=== PATIENT | male | born 1970 | race Hispanic/Latino ===

== ENCOUNTER 2017-02-21 18:30 | Emergency (ER) | payer BC ==
[2017-02-21 18:58] VITALS: BMI 31.9
[2017-02-21 19:02] VITALS: BP 147/91; PULSE 106; RESP 18; TEMP 99.3; O2SAT 95
[2017-02-21] MEDS ORDERED: TDAP Vaccine 0.5 mL Syr IM ONE (19:08)
--- NOTE | 2017-02-21 19:09 | ED PDOC ---
Arrival/HPI - General Chief Complaint: Abnormal Skin Integrity Time Seen by Provider: 02/21/17 19:04 Historian: Patient - History of Present Illness Narrative History of Present Illness (Text): 02/21/17 19:05 46 y/o male, no pmh, nkda, last tetanus over 10 years ago, nkda, c/o rt. hand laceration x 1 hour. Pt. 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 hand 5 digits or wrist, no numbness or tingling, no other medical or psychological complaints. Past Medical History - Provider Review Nursing Documentation Reviewed: Yes - Infectious Disease Hx of Infectious Diseases: None - Musculoskeletal/Rheumatological Hx Osteomyelitis: Yes (R leg) - Psychiatric Hx Substance Use: No - Surgical History Other/Comment: R leg surgery - osteomyelitis - Anesthesia Hx Anesthesia: Yes Hx Anesthesia Reactions: No Hx Malignant Hyperthermia: No Family/Social History - Physician Review Nursing Documentation Reviewed: Yes Family/Social History: Unknown Family HX Smoking Status: Heavy Smoker > 10 Cigarettes Daily Hx Alcohol Use: Yes Frequency of alcohol use: Socially Hx Substance Use: No Allergies/Home Meds Allergies/Adverse Reactions: Allergies No Known Allergies Allergy (Verified 02/21/17 18:58) Review of Systems - Review of Systems Constitutional: absent: Fatigue, Fevers Eyes: absent: Vision Changes ENT: absent: Hearing Changes Respiratory: absent: SOB, Cough Cardiovascular: absent: Chest Pain Gastrointestinal: absent: Abdominal Pain, Nausea, Vomiting Musculoskeletal: absent: Arthralgias Skin: Laceration. absent: Rash, Pruritis Psychiatric: absent: Anxiety, Depression Physical Exam Vital Signs Reviewed: Yes Vital Signs Temp Pulse Resp BP Pulse Ox 02/21/17 19:01 99.3 F 106 H 18 147/91 H 95 Temperature: Afebrile Blood Pressure: Hypertensive Pulse: Tachycardic Respiratory Rate: Normal Appearance: Positive for: Well-Appearing, Non-Toxic, Comfortable Pain Distress: Mild Mental Status: Positive for: Alert and Oriented X 3 - Systems Exam Head: Present: Atraumatic, Normocephalic Pupils: Present: PERRL Extroacular Muscles: Present: EOMI Conjunctiva: Present: Normal Mouth: Present: Moist Mucous Membranes Neck: Present: Normal Range of Motion Respiratory/Chest: Present: Clear to Auscultation, Good Air Exchange. No: Respiratory Distress, Accessory Muscle Use Cardiovascular: Present: Regular Rate and Rhythm, Normal S1, S2. No: Murmurs Abdomen: Present: Normal Bowel Sounds. No: Tenderness, Distention, Peritoneal Signs Back: Present: Normal Inspection Upper Extremity: Present: Normal Inspection, Other (Rt. hand: thenar region visible approx. 2cm superficial to intermediate depth laceration noted with mild oozing from the wound, FROM without limitation, sensation intact, motor 5/5 , able to touch thumb against remaining 4 digits, +radial pulse, capillary refill< 2 seconds, neurovascular intact. ). No: Cyanosis, Edema Lower Extremity: Present: Normal Inspection. No: Edema Neurological: Present: GCS=15, Speech Normal, Motor Func Grossly Intact, Gait Normal, Memory Normal Skin: Present: Warm, Dry, Normal Color. No: Rashes Psychiatric: Present: Alert, Oriented x 3, Normal Insight, Normal Concentration Medical Decision Making ED Course and Treatment: 02/21/17 19:11 -tdap -xray 02/21/17 19:47 -xray show no fracture/dislocation/foreign bodies. -sensation intact, motor 5/5, wound irrigate with normal saline 1000cc, clean with betadine, 5-0 nylon made sutures, hemostasis obtained with good approximation, gauze dressing, sensation intact, motor 5/5, less than 5cc of blood loss, procedure time approx. 15 minutes. -Discharge home with keflex, motrin, bacitracin oinment, keep the dressing and suture dry and clean for 3 days, sutures need to be removed by day 10-11, return to the ER for any new or worsening signs or symptoms. - RAD Interpretation Radiology Orders: 02/21/17 19:08 HAND RIGHT 3 VIEWS [RAD] Stat normal bone xray Panel Lay Up Worker: Radiologist - Medication Orders Current Medication Orders: Discontinued Medications Cephalexin Monohydrate (Keflex) 500 mg PO STAT STA PRN Reason: Protocol Stop: 02/21/17 19:09 Last Admin: 02/21/17 19:50 Dose: 500 mg Tetanus/Reduced Diphtheria/Acell Pertussis (Boostrix Vaccine Inj) 0.5 ml IM .ONCE ONE Stop: 02/21/17 19:09 Last Admin: 02/21/17 19:50 Dose: 0.5 ml - PA / SALES APPLICATIONS ENGINEER / Resident Statement / has reviewed & agrees with the documentation as recorded. Disposition/Present on Arrival - Present on Arrival Any Indicators Present on Arrival: No History of DVT/PE: No History of Uncontrolled Diabetes: No Urinary Catheter: No History of Decub. Ulcer: No History Surgical Site Infection Following: None - Disposition Have Diagnosis and Disposition been Completed?: Yes Diagnosis: Hand laceration Disposition: HOME/ ROUTINE Disposition Time: 19:47 Patient Plan: Discharge Condition: IMPROVED Additional Instructions: -Discharge home with keflex, motrin, bacitracin oinment, keep the dressing and suture dry and clean for 3 days, sutures need to be removed by day 10-11, return to the ER for any new or worsening signs or symptoms. Prescriptions: Bacitracin Ointment [Bacitracin] 1 appful TOP BID #15 g Cephalexin [cephalexin] 500 mg PO TID #30 cap Ibuprofen [Motrin] 600 mg PO QID PRN #24 tab PRN Reason: Other Referrals: [facility] at [facility] [place] [Outside] - Follow up with primary Lawanda Darling MD [Staff Provider] - Follow up with primary Forms: [facility] (Slovenian), WORK NOTE
--- NOTE | 2017-02-22 07:36 | RAD ---
HISTORY: rt. hand thenar laceration COMPARISON: No prior FINDINGS: BONES: Normal. No fracture. JOINTS: Normal. No osteoarthritis. SOFT TISSUE: Normal. OTHER FINDINGS: None . IMPRESSION: Normal Bone Xray.
== END 2017-02-21 20:01 | disposition home or self-care (01) ==
LOC: ED 18:30
DX: S61.411A Laceration without foreign body of right hand, initial encounter (principal); W25.XXXA Contact with sharp glass, initial encounter; Y92.89 Other specified places as the place of occurrence of the external cause; Z23 Encounter for immunization

== ENCOUNTER 2017-07-26 23:51 | Inpatient (IN) | payer BC ==
[2017-07-26 23:52] VITALS: BMI 31.9
[2017-07-27] MEDS ORDERED: Sodium Chloride 0.9% 1,000 ML IV STA (00:09)
--- NOTE | 2017-07-27 00:14 | ED PDOC ---
Arrival/HPI - General Historian: Patient - General Chief Complaint: Back Pain Time Seen by Provider: 07/27/17 00:08 - History of Present Illness Narrative History of Present Illness (Text): 07/27/17 00:14 47 year old male, no significant pmh, nkda, biba complaining of fever with lower back pain started yesterday with no fall or trauma. 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 (Tre Forde) Past Medical History - Provider Review Nursing Documentation Reviewed: Yes - Infectious Disease Hx of Infectious Diseases: None - Cardiac Hx Cardiac Disorders: No - Pulmonary Hx Respiratory Disorders: No - Neurological Hx Neurological Disorder: No - HEENT Hx HEENT Disorder: No - Renal Hx Renal Disorder: No - Endocrine/Metabolic Hx Hyperthyroidism: Yes - Hematological/Oncological Hx Blood Disorders: No - Integumentary Hx Dermatological Disorder: No - Musculoskeletal/Rheumatological Hx Osteomyelitis: Yes (R leg) - Psychiatric Hx Substance Use: No - Surgical History Other/Comment: R leg surgery - osteomyelitis - Anesthesia Hx Anesthesia: Yes Hx Anesthesia Reactions: No Hx Malignant Hyperthermia: No Family/Social History - Physician Review Nursing Documentation Reviewed: Yes Family/Social History: Unknown Family HX Smoking Status: Heavy Smoker > 10 Cigarettes Daily Hx Alcohol Use: Yes Hx Substance Use: No Allergies/Home Meds Allergies/Adverse Reactions: Allergies No Known Allergies Allergy (Verified 07/27/17 00:05) Home Medications: Home Meds Medication Instructions Recorded Confirmed No Known Home Med 07/27/17 07/27/17 Review of Systems - Review of Systems Constitutional: Fatigue, Fevers Eyes: absent: Vision Changes ENT: absent: Hearing Changes Respiratory: Cough, Sputum. absent: SOB, Wheezing Cardiovascular: absent: Chest Pain Gastrointestinal: absent: Abdominal Pain, Nausea, Vomiting Musculoskeletal: Back Pain, Myalgias. absent: Arthralgias, Neck Pain, Joint Swelling Skin: absent: Rash, Pruritis Neurological: absent: Headache, Dizziness Psychiatric: absent: Anxiety, Depression, Suicidal Ideation Physical Exam Vital Signs Reviewed: Yes Temperature: Febrile Blood Pressure: Hypertensive Pulse: Tachycardic Respiratory Rate: Normal Appearance: Positive for: Ill-Appearing, Uncomfortable Pain Distress: Severe Mental Status: Positive for: Alert and Oriented X 3 - Systems Exam Head: Present: Atraumatic, Normocephalic. No: Tenderness, Contusion, Swelling, Ecchymosis, Abrasion, Laceration, Other Pupils: Present: PERRL Extroacular Muscles: Present: EOMI Conjunctiva: Present: Normal Ears: Present: NORMAL TM, Normal Canal. No: Erythema Mouth: Present: Moist Mucous Membranes Nose (Internal): Present: Normal Inspection, No Active Bleeding. No: Septal Hematoma, Epistaxis Neck: Present: Normal Range of Motion, Trachea Midline. No: Meningeal Signs, MIDLINE TENDERNESS, Paraspinal Tenderness, Lymphadenopathy Respiratory/Chest: Present: Clear to Auscultation, Good Air Exchange. No: Respiratory Distress, Accessory Muscle Use, Wheezes, Decreased Breath Sounds, Rales, Retracting, Tachypneic, Tender to Palpation Cardiovascular: Present: Regular Rate and Rhythm, Normal S1, S2. No: Murmurs Abdomen: No: Tenderness, Distention, Peritoneal Signs, Rebound, Guarding Back: Present: Normal Inspection, Other (LS spine: +ttp on the bilateral paraspinal muscle region and mildly midline, no rash, no streaking, no saddling gait. ). No: CVA Tenderness, Pain with Leg Raise, Decubitus Ulcer Upper Extremity: Present: Normal Inspection. No: Cyanosis, Edema Lower Extremity: Present: Normal Inspection. No: Edema Neurological: Present: GCS=15, CN II-XII Intact, Speech Normal Skin: Present: Warm, Dry, Normal Color. No: Rashes Psychiatric: Present: Alert, Oriented x 3, Normal Insight, Normal Concentration Vital Signs Temp Pulse Resp BP Pulse Ox 07/27/17 01:56 99.6 F 97 H 18 145/85 97 07/27/17 00:06 101.4 F H 113 H 18 151/84 H 96 Medical Decision Making ED Course and Treatment: 07/27/17 00:18 -labs/vbg/blood culture/rapid flu -CT Lumbar spine -Chest xray -IVF/tylenol/toradol -Observe and reassess 07/27/17 01:31 -Labs show no acute findings except wbc 13.7 -Rapid flu is negative -Lactic acid 2.2 -Lactic acid 2.2, wbc 13.7, febrile and tachycardia, code sepsis activated -Blood cultures and IV rocephine and vancomycin ordered for empiric treatment for possible spinal abscess as the source of the fever is unclear at this time. 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 -Case discussed and endorsed to the ER attending Dr. Owens, he will follow up on the lab/radiology result and dispo the patient. (Tre Forde) 07/27/17 03:[address] Larsen, who is aware and agrees with plan. Accepts pt into his service. Pt admitted to telemetry. (Zhao Owens) - Lab Interpretations Lab Results: 07/27/17 00:20 07/27/17 00:20 Lab Results 07/27/17 02:11: Urine Color Yellow, Urine Appearance Clear, Urine pH 6.5, Ur Specific [place] 1.010, Urine Protein Negative, Urine Glucose (UA) Negative, Urine Ketones Negative, Urine Blood Negative, Urine Nitrate Negative, Urine Bilirubin Negative, Urine Urobilinogen 0.2, Ur Leukocyte Esterase Negative 07/27/17 02:11: Urine Opiates Screen Negative, Urine Methadone Screen Negative, Ur Barbiturates Screen Negative, Ur Phencyclidine Scrn Negative, Ur Amphetamines Screen Negative, U Benzodiazepines Scrn Negative, U Oth Cocaine Metabols Negative, U Cannabinoids Screen Negative 07/27/17 00:50: Influenza Typ A,B (EIA) Negative for flu a/b 07/27/17 00:20: WBC 13.7 H, RBC 5.11, Hgb 15.8, Hct 44.4, MCV 86.9, MCH 30.9, MCHC 35.6, RDW 12.9, Plt Count 245, MPV 9.0, Gran % 85.5 H, Lymph % (Auto) 6.9 L , Newton % (Auto) 6.9 H, Eos % (Auto) 0.6 L, Baso % (Auto) 0.1, Gran # 11.68 H, Lymph # (Auto) 0.9 L, Newton # (Auto) 0.9 H, Eos # (Auto) 0.1, Baso # (Auto) 0.02 07/27/17 00:20: Free T4 0.77 L, TSH 3rd Generation 2.83 07/27/17 00:20: Sodium 141, Chloride 106, Potassium 3.9, Carbon Dioxide 24, Anion Gap 16, BUN 13, Creatinine 0.8, Est GFR ( Amer) > 60, Est GFR (Non- Af Amer) > 60, Random Glucose 164 H, Calcium 8.8, Magnesium 1.7, Total Bilirubin 0.6, AST 29, ALT 53, Alkaline Phosphatase 73, Total Protein 6.9, Albumin 3.9, Globulin 3.0, Albumin/Globulin Ratio 1.3 07/27/17 00:20: pO2 150 H, VBG pH 7.45 H, VBG pCO2 36.0 L, VBG HCO3 25.0, VBG Total CO2 26.1, VBG O2 Sat (Calc) 99.6 H, VBG Base Excess 1.3, VBG Potassium 3.9 , Sodium 136.0, Chloride 105.0, Glucose 181 H, Lactate 2.2 H, FiO2 21.0, Venous Blood Potassium 3.9 - RAD Interpretation Radiology Orders: 07/27/17 00:09 CHEST PORTABLE [RAD] Stat 07/27/17 00:10 LUMBAR SPINE W/CONTRAST [CT] Stat 07/27/17 02:03 DUPLEX LOWER EXTRM VEIN BILAT [US] Stat - Medication Orders Current Medication Orders: Discontinued Medications Acetaminophen (Tylenol 325mg Tab) 650 mg PO STAT STA Stop: 07/27/17 00:10 Last Admin: 07/27/17 00:28 Dose: 650 mg Sodium Chloride (Sodium Chloride 0.9%) 1,000 mls @ 999 mls/hr IV .Q1H1M STA Stop: 07/27/17 01:09 Last Admin: 07/27/17 00:28 Dose: 999 mls/hr eMAR Start Stop Document 07/27/17 00:28 CNR (Rec: 07/27/17 00:28 CNR [id number]) Intravenous Solution Start Date 07/27/17 Start Time 00:28 Vancomycin HCl (Vancomycin 1gm) 1 gm in 250 mls @ 167 mls/hr IVPB STAT STA PRN Reason: Protocol Stop: 07/27/17 02:58 Last Admin: 07/27/17 01:56 Dose: 167 mls/hr eMAR Start Stop Document 07/27/17 01:56 CNR (Rec: 07/27/17 01:56 CNR [id number]) Intravenous Solution Start Date 07/27/17 Start Time 01:56 End Date 07/27/17 End time 03:26 Total Infusion Time 90 Ceftriaxone Sodium (Rocephin 2 Gm Ivpb) 2 gm in 100 mls @ 100 mls/hr IVPB STAT STA PRN Reason: Protocol Stop: 07/27/17 02:29 Last Admin: 07/27/17 03:50 Dose: 100 mls/hr eMAR Start Stop Document 07/27/17 03:50 CNR (Rec: 07/27/17 03:50 CNR [id number]) Intravenous Solution Start Date 07/27/17 Start Time 03:50 End Date 07/27/17 End time 04:50 Total Infusion Time 60 Azithromycin (Zithromax 500mg In Ns) 500 mg in 250 mls @ 167 mls/hr IVPB STAT STA PRN Reason: Protocol Stop: 07/27/17 03:55 Ketorolac Tromethamine (Toradol) 30 mg IVP STAT STA Stop: 07/27/17 00:10 Last Admin: 07/27/17 00:28 Dose: 30 mg MAR Pain Assessment Document 07/27/17 00:28 CNR (Rec: 07/27/17 00:28 CNR [id number]) Pain Reassessment Is this a pain reassessment? No IVP Administration Document 07/27/17 00:28 CNR (Rec: 07/27/17 00:28 CNR [id number]) Charges for Administration # of IVP Administrations 1 - PA / SHALLOT CLEANER / Resident Statement /DO has reviewed & agrees with the documentation as recorded. Disposition/Present on Arrival - Present on Arrival Any Indicators Present on Arrival: No History of DVT/PE: No History of Uncontrolled Diabetes: No Urinary Catheter: No History of Decub. Ulcer: No History Surgical Site Infection Following: None - Disposition Have Diagnosis and Disposition been Completed?: Yes Disposition Time: 01:33 Patient Plan: Admission - Disposition Diagnosis: Sepsis Condition: GUARDED Discharge Instructions (ExitCare): Sepsis (ED) Forms: [employer] (German)
[2017-07-27 00:43] LABS: BASO # 0.02 K/mm3 (0.0-2.0); BASO % 0.1 % (0.0-3.0); EOS # 0.1 (0.0-0.7); EOS % 0.6 % (1.5-5.0); GRAN # 11.68 (1.4-6.5); GRAN % 85.5 % (50.0-68.0); HEMOGLOBIN 15.8 g/dL (14.0-18.0); LYMPH # 0.9 (1.2-3.4); LYMPH % 6.9 % (22.0-35.0); MEAN CELL VOLUME 86.9 fl (80.0-105.0); MEAN CORPUSCULAR HEMOGLOBIN 30.9 pg (25.0-35.0); MEAN CORPUSCULAR HGB CONC 35.6 g/dl (31.0-37.0); MONO # 0.9 (0.1-0.6); MONO % 6.9 % (1.0-6.0); RBC 5.11 10^6/uL (3.5-6.1); RED CELL DISTRIBUTION WIDTH 12.9 % (11.5-14.5); WHITE BLOOD COUNT 13.7 10^3/ul (4.5-11.0)
[2017-07-27 00:49] LABS: VENOUS BLOOD GAS BASE EXCESS 1.3 mmol/L (0.0-2.0); VENOUS BLOOD GAS PO2 150 mm/Hg (30-55); VENOUS BLOOD PH 7.45 (7.32-7.43)
[2017-07-27 01:03] LABS: ALB/GLOB RATIO 1.3 (1.1-1.8); ALBUMIN 3.9 g/dL (3.0-4.8); ALT/SGPT 53 U/L (7-56); AST/SGOT 29 U/L (17-59); BLOOD UREA NITROGEN 13 mg/dL (7-21); CALCIUM 8.8 mg/dL (8.4-10.5); GFR AFRICAN-AMERICAN > 60; GFR NON-AFRICAN AMERICAN > 60
[2017-07-27 01:19] LABS: FREE T4 0.77 ng/dL (0.78-2.19)
[2017-07-27] MEDS ORDERED: Iohexol 350 MG/100 ML VIAL ONE (01:19)
[2017-07-27] MEDS ORDERED: Vancomycin 1gm in NS 250ml 1 GM/250 ML BAG IVPB STA (01:29)
[2017-07-27] MEDS ORDERED: cefTRIAXone 2 GM IN NS 2 GM/100 ML BAG IVPB STA (01:30)
--- NOTE | 2017-07-27 02:25 | RAD ---
EXAM: XR Chest, 1 View CLINICAL HISTORY: 47 years old, male; Signs and symptoms; Fever TECHNIQUE: Frontal view of the chest. COMPARISON: No relevant prior studies available. FINDINGS: Limitations: Radiographic technique - mild. Lungs: Mild patchy, predominantly bandlike opacity within left lung base. Pleural space: No pleural effusion. No pneumothorax. Heart: No cardiomegaly. Mediastinum: Unremarkable. Bones/joints: No acute fracture. IMPRESSION: 1. Left basilar atelectasis versus early pneumonia.
[2017-07-27] MEDS ORDERED: Azithromycin 500MG/NS 250ml 500 MG/250 ML BAG IVPB STA (02:26)
--- NOTE | 2017-07-27 02:40 | CT ---
EXAM: CT Lumbar Spine With Intravenous Contrast CLINICAL HISTORY: 47 years old, male; Pain; Low back pain; Additional info: Lower back pain, radiating, fever TECHNIQUE: Axial computed tomography images of the lumbar spine with intravenous contrast. All CT scans at this facility use one or more dose reduction techniques, viz.: automated exposure control; ma/kV adjustment per patient size (including targeted exams where dose is matched to indication; i.e. head); or iterative reconstruction technique. Coronal and sagittal reformatted images were created and reviewed. CONTRAST: 96 mL of OMNI 350 administered intravenously. COMPARISON: No relevant prior studies available. FINDINGS: Limitations: Motion artifact - mild. Vertebrae: No acute fracture. Schmorl's node within mid lumbar spine. No definite erosions or cortical destruction. Dextroscoliosis. Facet osteoarthrosis within mid and lower lumbar spine. Discs/spinal canal/neural foramina: Mild degenerative disc disease throughout lumbar spine. Mild to moderate central canal stenosis within mid to lower lumbar spine. Neuroforaminal narrowing within mid and lower lumbar spine. No definite enhancing mass or fluid collection within spinal canal. Soft tissues: Unremarkable. Vasculature: Several rounded calcifications within pelvis, likely phleboliths. Liver: Mild fatty infiltration. Stomach and bowel: Colonic diverticula. IMPRESSION: 1. No fracture. 2. If symptoms persist, suggest MRI for further evaluation. 3. Incidental/non-acute findings are described above.
[2017-07-27 03:24] LABS: BARBITURATES, UR NEGATIVE (NEGATIVE); BENZODIAZEPINES, UR NEGATIVE (NEGATIVE); OPIATES, UR NEGATIVE (NEGATIVE); PHENCYCLIDINE, UR NEGATIVE (NEGATIVE)
[2017-07-27 03:32] LABS: PH,URINE 6.5 (4.7-8.0); URINE BILIRUBIN NEGATIVE (NEGATIVE); URINE BLOOD NEGATIVE (NEGATIVE); URINE GLUCOSE (UA) NEGATIVE (NEGATIVE); URINE LEUKOCYTE ESTERASE NEGATIVE Leu/uL (NEGATIVE); URINE PROTEIN NEGATIVE mg/dL (<30 mg/dL); URINE UROBILINOGEN 0.2 E.U./dL (<1 E.U./dL)
[2017-07-27 03:35] LABS: URINE APPEARANCE CLEAR (CLEAR); URINE COLOR YELLOW (YELLOW)
[2017-07-27 04:18] LABS: VENOUS BLOOD GAS BASE EXCESS -0.2 mmol/L (0.0-2.0); VENOUS BLOOD GAS PO2 164 mm/Hg (30-55); VENOUS BLOOD PH 7.39 (7.32-7.43)
--- NOTE | 2017-07-27 04:57 | CP.PCM.HP ---
<Laureano Glass - Last Filed: 07/27/17 05:33> History of Present Illness - History of Present Illness History of Present Illness: PGY-1 H&P for Dr. Larsen This is a 47 year old male with PMHx hyperthyroidism who presented with complaint of generalized body pain worst in the lumbar spine. Patient states that this started yesterday after he woke from sleep. Pain has been constant since then. Patient is unable to characterize the pain but remarks that it is worst in the lumbar spine and radiates to the feet bilaterally. Patient does not notice any exacerbating or relieving factors, and he denies trauma. Patient denies subjective fever, chills, chest pain, dyspnea, cough, abdominal pain, dysuria. Patient denies any recent travel or sick contacts. PMHx: Hyperthyroidism (unknown type that was treated many years ago) PSHx: Right leg surgery more than 20 years ago Allergies: NKDA Social: Current smoker 1 pack per day for 31 years. Denies alcohol, drugs. 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 Family Hx: Mother with pancreatic CA at age 64. Grandmother with ESRD on HD. PMD: denies Home meds: denies Present on Admission - Present on Admission Any Indicators Present on Admission: No Review of Systems - Constitutional Constitutional: absent: Chills, Fever - EENT Eyes: absent: Change in Vision Ears: absent: Decreased Hearing Nose/Mouth/Throat: absent: Nasal Congestion - Cardiovascular Cardiovascular: absent: Chest Pain - Respiratory Respiratory: absent: Cough, Dyspnea - Gastrointestinal Gastrointestinal: Constipation (intermittent), Nausea (intermittent). absent: Abdominal Pain, Diarrhea, Vomiting - Genitourinary Genitourinary: absent: Dysuria - Musculoskeletal Musculoskeletal: Back Pain, Radiating Pain into Limb - Integumentary Integumentary: absent: Rash - Neurological Neurological: absent: Dizziness, Weakness - Psychiatric Psychiatric: absent: Anxiety - Endocrine Endocrine: absent: Palpitations Past Patient History - Infectious Disease Hx of Infectious Diseases: None - Past Social History Smoking Status: Heavy Smoker > 10 Cigarettes Daily - CARDIAC Hx Cardiac Disorders: No - PULMONARY Hx Respiratory Disorders: No - NEUROLOGICAL Hx Neurological Disorder: No - HEENT Hx HEENT Problems: No - RENAL Hx Chronic Kidney Disease: No - ENDOCRINE/METABOLIC Hx Hyperthyroidism: Yes - HEMATOLOGICAL/ONCOLOGICAL Hx Blood Disorders: No - INTEGUMENTARY Hx Dermatological Problems: No - MUSCULOSKELETAL/RHEUMATOLOGICAL Hx Osteomyelitis: Yes (R leg) - PSYCHIATRIC Hx Substance Use: No - SURGICAL HISTORY Other/Comment: R leg surgery - osteomyelitis - ANESTHESIA Hx Anesthesia: Yes Hx Anesthesia Reactions: No Hx Malignant Hyperthermia: No Meds Allergies/Adverse Reactions: Allergies Allergy/AdvReac Type Severity Reaction Status Date / Time No Known Allergies Allergy Verified 07/27/17 00:05 Physical Exam - Constitutional Appears: No Acute Distress - Head Exam Head Exam: ATRAUMATIC, NORMOCEPHALIC - Eye Exam Eye Exam: EOMI, PERRL - ENT Exam ENT Exam: Mucous Membranes Moist - Respiratory Exam Respiratory Exam: Clear to Auscultation Bilateral, NORMAL BREATHING PATTERN. absent: Rales, Rhonchi, Wheezes - Cardiovascular Exam Cardiovascular Exam: REGULAR RHYTHM, +S1, +S2 - GI/Abdominal Exam GI & Abdominal Exam: Normal Bowel Sounds, Soft. absent: Guarding, Organomegaly , Tenderness Additional comments: obese body habitus - Extremities Exam Extremities exam: Negative for: pedal edema - Neurological Exam Neurological exam: Alert, CN II-XII Intact, Oriented x3 - Psychiatric Exam Psychiatric exam: Normal Affect, Normal Mood - Skin Skin Exam: Dry, Warm Results - Vital Signs Recent Vital Signs: Last Vital Signs Temp 99.6 F 07/27/17 01:56 Pulse 97 H 07/27/17 01:56 Resp 18 07/27/17 01:56 BP 145/85 07/27/17 01:56 Pulse Ox 97 07/27/17 01:56 - Labs Result Diagrams: 07/27/17 00:20 07/27/17 00:20 Labs: Laboratory Results - last 24 hr 07/27/17 07/27/17 07/27/17 00:20 00:20 00:20 WBC RBC Hgb Hct MCV MCH MCHC RDW Plt Count MPV Gran % Lymph % (Auto) [place] % (Auto) Eos % (Auto) Baso % (Auto) Gran # Lymph # (Auto) [place] # (Auto) Eos # (Auto) Baso # (Auto) pO2 150 H VBG pH 7.45 H VBG pCO2 36.0 L VBG HCO3 25.0 VBG Total CO2 26.1 VBG O2 Sat (Calc) 99.6 H VBG Base Excess 1.3 VBG Potassium 3.9 Sodium 136.0 141 Chloride 105.0 106 Glucose 181 H Lactate 2.2 H FiO2 21.0 Potassium 3.9 Carbon Dioxide 24 Anion Gap 16 BUN 13 Creatinine 0.8 Est GFR ( Amer) > 60 Est GFR (Non-Af Amer) > 60 Random Glucose 164 H Calcium 8.8 Magnesium 1.7 Total Bilirubin 0.6 AST 29 ALT 53 Alkaline Phosphatase 73 Total Protein 6.9 Albumin 3.9 Globulin 3.0 Albumin/Globulin Ratio 1.3 Free T4 0.77 L TSH 3rd Generation 2.83 Venous Blood Potassium 3.9 Urine Color Urine Appearance Urine pH Ur Specific [place] Urine Protein Urine Glucose (UA) Urine Ketones Urine Blood Urine Nitrate Urine Bilirubin Urine Urobilinogen Ur Leukocyte Esterase Urine Opiates Screen Urine Methadone Screen Ur Barbiturates Screen Ur Phencyclidine Scrn Ur Amphetamines Screen U Benzodiazepines Scrn U Oth Cocaine Metabols U Cannabinoids Screen Influenza Typ A,B (EIA) 07/27/17 07/27/17 07/27/17 00:20 00:50 02:11 WBC 13.7 H RBC 5.11 Hgb 15.8 Hct 44.4 MCV 86.9 MCH 30.9 MCHC 35.6 RDW 12.9 Plt Count 245 MPV 9.0 Gran % 85.5 H Lymph % (Auto) 6.9 L [place] % (Auto) 6.9 H Eos % (Auto) 0.6 L Baso % (Auto) 0.1 Gran # 11.68 H Lymph # (Auto) 0.9 L [place] # (Auto) 0.9 H Eos # (Auto) 0.1 Baso # (Auto) 0.02 pO2 VBG pH VBG pCO2 VBG HCO3 VBG Total CO2 VBG O2 Sat (Calc) VBG Base Excess VBG Potassium Sodium Chloride Glucose Lactate FiO2 Potassium Carbon Dioxide Anion Gap BUN Creatinine Est GFR ( Amer) Est GFR (Non-Af Amer) Random Glucose Calcium Magnesium Total Bilirubin AST ALT Alkaline Phosphatase Total Protein Albumin Globulin Albumin/Globulin Ratio Free T4 TSH 3rd Generation Venous Blood Potassium Urine Color Urine Appearance Urine pH Ur Specific [place] Urine Protein Urine Glucose (UA) Urine Ketones Urine Blood Urine Nitrate Urine Bilirubin Urine Urobilinogen Ur Leukocyte Esterase Urine Opiates Screen Negative Urine Methadone Screen Negative Ur Barbiturates Screen Negative Ur Phencyclidine Scrn Negative Ur Amphetamines Screen Negative U Benzodiazepines Scrn Negative U Oth Cocaine Metabols Negative U Cannabinoids Screen Negative Influenza Typ A,B (EIA) Negative for flu a/b 07/27/17 07/27/17 02:11 03:55 WBC RBC Hgb Hct MCV MCH MCHC RDW Plt Count MPV Gran % Lymph % (Auto) [place] % (Auto) Eos % (Auto) Baso % (Auto) Gran # Lymph # (Auto) [place] # (Auto) Eos # (Auto) Baso # (Auto) pO2 164 H VBG pH 7.39 VBG pCO2 41.0 VBG HCO3 24.8 VBG Total CO2 26.1 VBG O2 Sat (Calc) 99.3 H VBG Base Excess -0.2 L VBG Potassium 4.0 Sodium 136.0 Chloride 106.0 Glucose 109 Lactate 1.3 FiO2 21.0 Potassium Carbon Dioxide Anion Gap BUN Creatinine Est GFR ( Amer) Est GFR (Non-Af Amer) Random Glucose Calcium Magnesium Total Bilirubin AST ALT Alkaline Phosphatase Total Protein Albumin Globulin Albumin/Globulin Ratio Free T4 TSH 3rd Generation Venous Blood Potassium 4.0 Urine Color Yellow Urine Appearance Clear Urine pH 6.5 Ur Specific [place] 1.010 Urine Protein Negative Urine Glucose (UA) Negative Urine Ketones Negative Urine Blood Negative Urine Nitrate Negative Urine Bilirubin Negative Urine Urobilinogen 0.2 Ur Leukocyte Esterase Negative Urine Opiates Screen Urine Methadone Screen Ur Barbiturates Screen Ur Phencyclidine Scrn Ur Amphetamines Screen U Benzodiazepines Scrn U Oth Cocaine Metabols U Cannabinoids Screen Influenza Typ A,B (EIA) Assessment & Plan - Assessment and Plan (Free Text) Assessment: This is a 47 year old male with PMHx hyperthyroidism who presented with complaint of generalized body pain worst in the lumbar spine. Patient found to be septic in the ED with suspected source of pneumonia. Plan: 1. Sepsis -ID consulted by the ED -Given Vancomycin, Azithromycin, Rocephin -Continued Azithromycin and Rocephin -NS @100 cc/hr -f/u procalcitonin -CT chest/abd/pelvis without contrast ordered -f/u ABG 2. Back Pain -CT lumbar showed lumbar stenosis and foraminal narrowing -PT/OT 3. Tobacco Use Disorder -Nicotine patch -Counselled on smoking cessation 4. History of Hyperthyroidism -TSH within normal limits -free T4 slightly decreased -f/u thyroid workup Discussed with Dr. Chava Glass PGY-1 <Shiv Larsen U - Last Filed: 07/28/17 15:39> Results - Vital Signs Recent Vital Signs: Last Vital Signs Temp 98.3 F 07/28/17 12:00 Pulse 104 H 07/28/17 12:00 Resp 18 07/28/17 12:00 BP 133/83 07/28/17 12:00 Pulse Ox 96 07/28/17 09:00 - Labs Result Diagrams: 07/28/17 06:30 07/28/17 06:30 Labs: Laboratory Results - last 24 hr 07/27/17 07/27/17 07/27/17 07:00 08:20 17:45 WBC RBC Hgb Hct MCV MCH MCHC RDW Plt Count MPV Gran % Lymph % (Auto) [place] % (Auto) Eos % (Auto) Baso % (Auto) Gran # Lymph # (Auto) [place] # (Auto) Eos # (Auto) Baso # (Auto) Sodium Potassium Chloride Carbon Dioxide Anion Gap BUN Creatinine Est GFR ( Amer) Est GFR (Non-Af Amer) Random Glucose Calcium Phosphorus Magnesium Total Bilirubin Direct Bilirubin AST ALT Alkaline Phosphatase Total Creatine Kinase Total Protein Albumin Globulin Albumin/Globulin Ratio Hepatitis A IgM Ab Negative Hep Bs Antigen Negative Hep B Core IgM Ab Negative Hepatitis C Antibody Negative HIV 1&2 Ag/Ab, 4th Gen Nonreactive Ur L.pneumophila Ag Negative 07/28/17 07/28/17 07/28/17 06:30 06:30 06:30 WBC 7.5 D RBC 4.64 Hgb 13.9 L Hct 41.1 L MCV 88.6 MCH 30.0 MCHC 33.8 RDW 13.5 Plt Count 217 MPV 9.1 Gran % 67.8 Lymph % (Auto) 17.0 L [place] % (Auto) 12.1 H Eos % (Auto) 2.7 Baso % (Auto) 0.4 Gran # 5.06 Lymph # (Auto) 1.3 [place] # (Auto) 0.9 H Eos # (Auto) 0.2 Baso # (Auto) 0.03 Sodium 142 Potassium 4.2 Chloride 108 H Carbon Dioxide 26 Anion Gap 12 BUN 8 Creatinine 1.0 Est GFR ( Amer) > 60 Est GFR (Non-Af Amer) > 60 Random Glucose 97 Calcium 8.1 L Phosphorus 3.0 Magnesium 2.2 Total Bilirubin 0.3 Direct Bilirubin 0.1 AST 24 ALT 50 Alkaline Phosphatase 59 Total Creatine Kinase 43 Total Protein 5.8 Albumin 3.2 Globulin 2.6 Albumin/Globulin Ratio 1.3 Hepatitis A IgM Ab Hep Bs Antigen Hep B Core IgM Ab Hepatitis C Antibody HIV 1&2 Ag/Ab, 4th Gen Ur L.pneumophila Ag Attending/Attestation - Attestation I have personally seen and examined this patient.: Yes I have fully participated in the care of the patient.: Yes I have reviewed all pertinent clinical information: Yes Notes (Text): Please see/read my dictated notes.
[2017-07-27] MEDS ORDERED: Sodium Chloride 0.9% 1,000 ML IV SCH (05:00)
[2017-07-27] MEDS ORDERED: Lactated Ringer's 1,000 ML IV SCH (05:15)
[2017-07-27 05:42] LABS: ARTERIAL BLOOD GAS HCO3 22.8 mmol/L (21-28); ARTERIAL BLOOD GAS PCO2 36 mm/Hg (35-45); ARTERIAL BLOOD GAS PH 7.41 (7.35-7.45); ARTERIAL BLOOD GAS TCO2 23.9 mmol.L (22-28)
--- NOTE | 2017-07-27 06:24 | PCM.SEPTIC ---
<Laureano Glass - Last Filed: 07/27/17 06:23> Sepsis Progress Note - Reassessment Type Date of Evaluation: 07/27/17 Time of Evaluation: 05:30 Reassessment Type: Non-invasive reassessment - Non Invasive Reassessment Were the most recent vital sign reviewed: Yes Vital Sign (Latest): Temp Pulse Resp BP Pulse Ox 98.6 F 94 H 18 145/93 H 99 07/27/17 05:53 07/27/17 05:53 07/27/17 05:53 07/27/17 05:53 07/27/17 05:53 Cardiovascular: Yes: Regular Rate, Rhythm Respiratory: Yes: Normal Breath Sounds. No: Accessory Muscle Use, Rales, Wheezing, Respiratory Distress Capillary Refill: Normal (Less than 2 sec) Skin: Normal Color <Shiv Larsen - Last Filed: 07/28/17 15:39> Sepsis Progress Note - Non Invasive Reassessment Vital Sign (Latest): Temp Pulse Resp BP Pulse Ox 98.3 F 104 H 18 133/83 96 07/28/17 12:00 07/28/17 12:00 07/28/17 12:00 07/28/17 12:00 07/28/17 09:00 Attending/Attestation - Attestation I have personally seen and examined this patient.: Yes I have fully participated in the care of the patient.: Yes I have reviewed all pertinent clinical information, including history, physical exam and plan: Yes
--- NOTE | 2017-07-27 06:38 | CT ---
EXAM: CT Chest Without Intravenous Contrast CLINICAL HISTORY: 47 years old, male; Pain; Abdominal pain; Chest pain; Additional info: Sepsis TECHNIQUE: Axial computed tomography images of the chest without intravenous contrast. All CT scans at this facility use one or more dose reduction techniques, viz.: automated exposure control; ma/kV adjustment per patient size (including targeted exams where dose is matched to indication; i.e. head); or iterative reconstruction technique. Coronal and sagittal reformatted images were created and reviewed. COMPARISON: No relevant prior studies available. FINDINGS: Limitations: Lack of intravenous contrast. Lungs: Mild atelectasis/scarring. No consolidation. Pleural space: No pneumothorax. No significant effusion. Heart: No cardiomegaly. No significant pericardial effusion. Mediastinum: Small polyp or mucus within distal trachea. Bones/joints: No acute fracture. Soft tissues: Unremarkable. Vasculature: Aberrant RIGHT subclavian artery. No aneurysm. Lymph nodes: No pathologically enlarged lymph nodes. IMPRESSION: 1. No definite CT evidence of pneumonia. 2. Small polyp or mucus within trachea. Clinical correlation is needed. 3. Incidental/non-acute findings are described above. EXAM: CT Abdomen and Pelvis Without Intravenous Contrast CLINICAL HISTORY: 47 years old, male; Pain; Abdominal pain; Chest pain; Additional info: Sepsis TECHNIQUE: Axial computed tomography images of the abdomen and pelvis without intravenous contrast. All CT scans at this facility use one or more dose reduction techniques, viz.: automated exposure control; ma/kV adjustment per patient size (including targeted exams where dose is matched to indication; i.e. head); or iterative reconstruction technique. Coronal and sagittal reformatted images were created and reviewed. COMPARISON: No relevant prior studies available. FINDINGS: Limitations: Lack of intravenous contrast. ABDOMEN: Liver: Unremarkable. Gallbladder and bile ducts: No calcified stones. No ductal dilation. Pancreas: Unremarkable. No ductal dilation. Spleen: No splenomegaly. Adrenals: No mass. Kidneys and ureters: No renal calculi. Contrast within renal collecting system. No hydronephrosis. Stomach and bowel: Several diverticula within sigmoid colon. No associated inflammatory stranding. Moderate mural thickening of cecum and ascending colon. Mild stranding within adjacent fat. No obstruction. PELVIS: Appendix: Normal caliber. No inflammation. Bladder: Apparent mild bladder wall thickening. Contrast within lumen. Incomplete distention, limiting evaluation. Reproductive: Unremarkable as visualized. ABDOMEN and PELVIS: Intraperitoneal space: No significant fluid collection. No free air. Bones/joints: Focal widening medullary space of left iliac wing, chronic. Probable bone islands. Degenerative changes and scoliosis of spine. No acute fracture. Soft tissues: Unremarkable. Vasculature: Unremarkable. No aneurysm. Lymph nodes: Several subcentimeter short axis lymph nodes within paraaortic region. IMPRESSION: 1. Colitis, nonspecific. Consider inflammatory, infectious, or ischemic etiologies. 2. Mild cystitis vs underdistention. Correlate with urinalysis. 3. Incidental/non-acute findings are described above.
[2017-07-27] MEDS: Pantoprazole 40 mg EC Tab PO SCH (06:57)
[2017-07-27 07:12] LABS: BASO # 0.02 K/mm3 (0.0-2.0); BASO % 0.2 % (0.0-3.0); EOS # 0.1 (0.0-0.7); EOS % 0.5 % (1.5-5.0); GRAN # 10.44 (1.4-6.5); GRAN % 83.3 % (50.0-68.0); HEMOGLOBIN 15.2 g/dL (14.0-18.0); LYMPH % 7.8 % (22.0-35.0); MEAN CELL VOLUME 87.9 fl (80.0-105.0); MEAN CORPUSCULAR HEMOGLOBIN 30.2 pg (25.0-35.0); MEAN CORPUSCULAR HGB CONC 34.3 g/dl (31.0-37.0); MONO % 8.2 % (1.0-6.0); RBC 5.04 10^6/uL (3.5-6.1); RED CELL DISTRIBUTION WIDTH 13.1 % (11.5-14.5); WHITE BLOOD COUNT 12.5 10^3/ul (4.5-11.0)
[2017-07-27 07:36] LABS: ALB/GLOB RATIO 1.4 (1.1-1.8); ALBUMIN 3.8 g/dL (3.0-4.8); ALT/SGPT 51 U/L (7-56); AST/SGOT 26 U/L (17-59); BLOOD UREA NITROGEN 12 mg/dL (7-21); CALCIUM 8.3 mg/dL (8.4-10.5); GFR AFRICAN-AMERICAN > 60; GFR NON-AFRICAN AMERICAN > 60; HDL CHOLESTEROL 43 mg/dL (29-60); URIC ACID 5.3 mg/dL (3.5-8.5)
[2017-07-27 07:41] LABS: TROPONIN I < 0.01 ng/mL
[2017-07-27 07:42] LABS: LDL CHOLESTEROL 109 mg/dL (0-129)
[2017-07-27] MEDS: Piperacillin/Tazobact 3.375 gm 100 ML IVPB SCH ×3 (07:51→17:37)
[2017-07-27 08:15] LABS: FREE T4 0.81 ng/dL (0.78-2.19)
[2017-07-27] MEDS ORDERED: metroNIDAZOLE IV 500 mg/100 ml 500 MG/100 ML BAG IVPB SCH (08:15)
[2017-07-27 08:16] LABS: FREE T4 0.87 ng/dL (0.78-2.19)
[2017-07-27] MEDS: Levalbuterol 0.63 MG/3 ML Inhal Soln UD IH SCH ×3 (08:26→20:45)
[2017-07-27] MEDS: Enoxaparin 40 mg Syringe SC SCH (09:09)
[2017-07-27] MEDS ORDERED: Magnesium Citrate Oral SOL (300 ml) PO ONE (10:04)
[2017-07-27] MEDS ORDERED: POLYETHYLENE GLYCOL 3350 17 GM/Dose PACKET PO SCH (10:15)
--- NOTE | 2017-07-27 11:29 | CARD ---
APPROVED REPORT EKG Measurement Heart [id number] <Conclusion> Normal sinus rhythm Normal ECG
[2017-07-27] MEDS: Sodium Chloride 0.9% 1,000 ML IV SCH ×2 (13:16→20:00)
--- NOTE | 2017-07-27 13:47 | CP.PCM.CON ---
History of Present Illness - History of Present Illness History of Present Illness: 47 year old male with PMH of hyperthyroidism, obesity with BMI 33, history of right leg surgery, significant smoking history came in to [facility] [place] complaining of back pain, especially the lower back, on the right side. He states that the patient occasionally radiates to the legs and to the feet. He denies leg weakness or difficulty walking. He states that he does not have urinary incontinence, but occasionally has bowel incontinence. He states that the pain has been building up for a few months now. He denies fever or chills, denies IV drug use, no headache or dizziness, no chest pain, no SOB, no cough or rhinorrhea, no abdominal pain, no chest pain, no dysuria. He is noted to have leukocytosis in the ED and Infectious diseases consult is requested to further evaluate and manage. Review of Systems - Review of Systems All systems: reviewed and no additional remarkable complaints except (as per HPI ) Past Patient History - Infectious Disease Hx of Infectious Diseases: None - Past Social History Smoking Status: Current Some Days Smoker - CARDIAC Hx Cardiac Disorders: No (denies) - PULMONARY Hx Respiratory Disorders: No (denies) - NEUROLOGICAL Hx Neurological Disorder: No (denies) - HEENT Hx HEENT Problems: Yes (lasic sx) - RENAL Hx Chronic Kidney Disease: No (denies) - ENDOCRINE/METABOLIC Hx Endocrine Disorders: Yes Hx Hyperthyroidism: Yes - HEMATOLOGICAL/ONCOLOGICAL Hx Blood Disorders: No - INTEGUMENTARY Hx Dermatological Problems: No (denies) - MUSCULOSKELETAL/RHEUMATOLOGICAL Hx Musculoskeletal Disorders: Yes Hx Back Pain: Yes Hx Falls: No Hx Osteomyelitis: Yes (right leg with sx) - GASTROINTESTINAL Hx Gastrointestinal Disorders: Yes (constipation) - GENITOURINARY/GYNECOLOGICAL Hx Genitourinary Disorders: No (denies) - PSYCHIATRIC Hx Psychophysiologic Disorder: No (denies) Hx Substance Use: No - SURGICAL HISTORY Hx Surgeries: Yes (right leg) - ANESTHESIA Hx Anesthesia: Yes Hx Anesthesia Reactions: No Hx Malignant Hyperthermia: No Meds Allergies/Adverse Reactions: Allergies Allergy/AdvReac Type Severity Reaction Status Date / Time No Known Allergies Allergy Verified 07/27/17 00:05 - Medications Medications: Current Medications Acetaminophen (Tylenol 325mg Tab) 650 mg PO Q6 PRN PRN Reason: TEMP>=99.5F Last Admin: 07/27/17 09:08 Dose: 650 mg Acetaminophen (Tylenol 650 Mg Supp) 650 mg RC Q6H PRN PRN Reason: TEMP>=99.5F Atorvastatin Calcium (Lipitor) 40 mg PO DIN [facility] Benzonatate (Tessalon Perles) 200 mg PO TID [facility] Last Admin: 07/27/17 13:13 Dose: 200 mg Enoxaparin Sodium (Lovenox) 40 mg SC DAILY [facility] PRN Reason: Protocol Last Admin: 07/27/17 09:09 Dose: Not Given Piperacillin Sod/Tazobactam Sod (Zosyn 3.375 In Ns 100ml) 100 mls @ 200 mls/hr IVPB Q6 [facility] PRN Reason: Protocol Stop: 08/03/17 07:16 Last Admin: 07/27/17 13:13 Dose: 200 mls/hr Sodium Chloride (Sodium Chloride 0.9%) 1,000 mls @ 150 mls/hr IV .Q6H40M [facility] Last Admin: 07/27/17 13:16 Dose: 150 mls/hr Levalbuterol HCl (Xopenex) 0.63 mg IH [id number] [facility] Last Admin: 07/27/17 08:26 Dose: 0.63 mg Losartan Potassium (Cozaar) 25 mg PO DAILY [facility] Last Admin: 07/27/17 09:08 Dose: 25 mg Nicotine (Nicoderm Cq) 1 patch TD DAILY [facility] Last Admin: 07/27/17 09:09 Dose: Not Given Ondansetron HCl (Zofran Inj) 4 mg IVP Q4H PRN PRN Reason: Nausea/Vomiting Last Admin: 07/27/17 07:51 Dose: 4 mg Pantoprazole Sodium (Protonix Ec Tab) 40 mg PO 0600 [facility] Last Admin: 07/27/17 06:57 Dose: 40 mg Physical Exam - Constitutional Appears: Non-toxic, Chronically Ill - Head Exam Head Exam: NORMAL INSPECTION - ENT Exam ENT Exam: Mucous Membranes Moist - Neck Exam Neck exam: Negative for: Lymphadenopathy, Meningismus - Respiratory Exam Respiratory Exam: Decreased Breath Sounds. absent: Rales - Cardiovascular Exam Cardiovascular Exam: +S1, +S2 - GI/Abdominal Exam GI & Abdominal Exam: Soft. absent: Tenderness - Back Exam Back exam: absent: CVA tenderness (L), CVA tenderness (R), paraspinal tenderness , tenderness, vertebral tenderness - Neurological Exam Neurological exam: Alert, Oriented x3 Additional comments: 5/5 motor strength on all extremities Results - Vital Signs Recent Vital Signs: Last Vital Signs Temp 98.7 F 07/27/17 12:00 Pulse 86 07/27/17 12:00 Resp 21 07/27/17 12:00 BP 104/70 07/27/17 12:00 Pulse Ox 98 07/27/17 06:48 - Labs Result Diagrams: 07/27/17 06:30 07/27/17 06:30 Labs: Laboratory Results - last 24 hr 07/27/17 07/27/17 07/27/17 05:30 06:30 06:30 WBC 12.5 H RBC 5.04 Hgb 15.2 Hct 44.3 MCV 87.9 MCH 30.2 MCHC 34.3 RDW 13.1 Plt Count 224 MPV 9.0 Gran % 83.3 H Lymph % (Auto) 7.8 L [place] % (Auto) 8.2 H Eos % (Auto) 0.5 L Baso % (Auto) 0.2 Gran # 10.44 H Lymph # (Auto) 1.0 L [place] # (Auto) 1.0 H Eos # (Auto) 0.1 Baso # (Auto) 0.02 ESR 2 pCO2 36 pO2 94.0 HCO3 22.8 ABG pH 7.41 ABG Total CO2 23.9 ABG O2 Saturation 99.0 H ABG Base Excess -1.4 ABG Potassium 3.9 Sodium 137.0 143 Chloride 109.0 H 104 Glucose 100 Lactate 1.2 FiO2 28.0 Potassium 4.4 Carbon Dioxide 29 Anion Gap 14 BUN 12 Creatinine 0.9 Est GFR ( Amer) > 60 Est GFR (Non-Af Amer) > 60 Random Glucose 106 Hemoglobin A1c Lactic Acid Uric Acid 5.3 Calcium 8.3 L Phosphorus 3.5 Magnesium 1.7 Total Bilirubin 0.5 AST 26 ALT 51 Alkaline Phosphatase 67 Total Creatine Kinase 42 Troponin I < 0.01 C-React Prot High Sens Total Protein 6.5 Albumin 3.8 Globulin 2.7 Albumin/Globulin Ratio 1.4 Triglycerides 93 Cholesterol 172 LDL Cholesterol Direct 109 HDL Cholesterol 43 Free T4 Thyroxine (T4) TSH 3rd Generation Arterial Blood Potassium 3.9 07/27/17 07/27/17 07/27/17 06:30 06:30 06:30 WBC RBC Hgb Hct MCV MCH MCHC RDW Plt Count MPV Gran % Lymph % (Auto) [place] % (Auto) Eos % (Auto) Baso % (Auto) Gran # Lymph # (Auto) [place] # (Auto) Eos # (Auto) Baso # (Auto) ESR pCO2 pO2 HCO3 ABG pH ABG Total CO2 ABG O2 Saturation ABG Base Excess ABG Potassium Sodium Chloride Glucose Lactate FiO2 Potassium Carbon Dioxide Anion Gap BUN Creatinine Est GFR ( Amer) Est GFR (Non-Af Amer) Random Glucose Hemoglobin A1c 5.5 Lactic Acid 1.5 Uric Acid Calcium Phosphorus Magnesium Total Bilirubin AST ALT Alkaline Phosphatase Total Creatine Kinase Troponin I C-React Prot High Sens > 15.00 H Total Protein Albumin Globulin Albumin/Globulin Ratio Triglycerides Cholesterol LDL Cholesterol Direct HDL Cholesterol Free T4 0.81 Thyroxine (T4) 5.0 L TSH 3rd Generation 2.73 Arterial Blood Potassium 07/27/17 07/27/17 06:30 06:30 WBC RBC Hgb Hct MCV MCH MCHC RDW Plt Count MPV Gran % Lymph % (Auto) [place] % (Auto) Eos % (Auto) Baso % (Auto) Gran # Lymph # (Auto) [place] # (Auto) Eos # (Auto) Baso # (Auto) ESR pCO2 pO2 HCO3 ABG pH ABG Total CO2 ABG O2 Saturation ABG Base Excess ABG Potassium Sodium Chloride Glucose Lactate FiO2 Potassium Carbon Dioxide Anion Gap BUN Creatinine Est GFR ( Amer) Est GFR (Non-Af Amer) Random Glucose Hemoglobin A1c Lactic Acid Uric Acid Calcium Phosphorus Magnesium Total Bilirubin AST ALT Alkaline Phosphatase Total Creatine Kinase Troponin I C-React Prot High Sens Total Protein Albumin Globulin Albumin/Globulin Ratio Triglycerides Cholesterol LDL Cholesterol Direct HDL Cholesterol Free T4 0.87 0.83 Thyroxine (T4) TSH 3rd Generation 2.65 Arterial Blood Potassium Assessment & Plan - Assessment and Plan (Free Text) Plan: Assessment systemic inflammatory response syndrome in this patient acute worsening of lower back pain, consider acute stress reaction, R/O disc herniation, R/O spinal lesion hyperthyroidism obesity with BMI 33 history of right leg surgery significant smoking history Plan Started the patient on Vancomycin and Zosyn pending blood, urine cx; reviewed CT lumbar spine - will get MRI of the lumbar spine follow up HIV test will monitor clinically
[2017-07-27] MEDS: Vancomycin 1gm in NS 250ml 1 GM/250 ML BAG IVPB SCH (14:27)
[2017-07-27 18:33] LABS: HEPATITIS B SURFACE AG Negative (NEGATIVE)
[2017-07-27 18:39] LABS: HEPATITIS A IGM NEGATIVE (NEGATIVE); HEPATITIS B CORE AB NEGATIVE (NEGATIVE)
[2017-07-27 18:51] LABS: HEPATITIS C ANTIBODY NEGATIVE (NEGATIVE)
[2017-07-27] MEDS ORDERED: Gadodiamide 287 MG/ML VIAL (15ML) IV ONE (20:31)
--- NOTE | 2017-07-27 21:44 | US ---
HISTORY: Leg pain and swelling. Evaluate for DVT PHYSICIAN(S): Raúl Madrid MD. TECHNIQUE: Duplex sonography and color-flow Doppler with graded compression were used to evaluate the deep venous systems of both lower extremities. FINDINGS: The visualized deep venous systems of both lower extremities are sonographically normal and compressible. Normal wave forms and augmentation are seen. There is no sonographic evidence for deep venous thrombosis in the visualized segments of both lower extremities. IMPRESSION: No sonographic evidence for deep venous thrombosis in the visualized segments of both lower extremities.
[2017-07-28] MEDS: Piperacillin/Tazobact 3.375 gm 100 ML IVPB SCH ×4 (01:07→17:55)
[2017-07-28] MEDS: Levalbuterol 0.63 MG/3 ML Inhal Soln UD IH SCH ×4 (02:10→19:50)
[2017-07-28] MEDS: Vancomycin 1gm in NS 250ml 1 GM/250 ML BAG IVPB SCH ×2 (02:10→13:37)
--- NOTE | 2017-07-28 04:19 | HP ---
DATE OF EXAM: 07/27/2017 LOCATION: Patient is seen in the emergency room, room 274, bed 2. HISTORY OF PRESENT ILLNESS: The patient is a 47-year-old male who presented to the [facility] emergency room with complaining of fever, chills, back pain and generalized body aches and bilateral lower extremity pain. The patient was brought into the [facility] emergency room with fever, chills, back pain, diffuse myalgia. The symptoms have been worsening for the last 24-48 hours with generalized pain, radiating to back and the lower extremity. REVIEW OF SYSTEMS: A 13 -system review was done, pertinent positive and negative dictated above. CODE STATUS: Full code. LIVING WILL ADVANCE DIRECTIVE: None. ALLERGIES: None. HEIGHT: 6 feet 1 inch. WEIGHT: 252. BMI: 33.4. HOME MEDICATIONS: None. 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 FAMILY HISTORY: Not available. SOCIAL HISTORY: Social alcohol and positive smoking. FAMILY HISTORY: Mother of pancreatic cancer at 64. Grandmother with dialysis. PSYCHIATRIC HISTORY: Negative. PHYSICAL EXAMINATION: VITAL SIGNS: T-max 101.4-99.4. Telemetry shows sinus rhythm, sinus tachycardia, heart rates 110, 97, 94, 99, 102, 86 90, blood pressure 151/84, 145/85, 145/93, 145/ , 143/86, 104/70, respiratory rate is 18-21, oxygen saturation 97-99%. HEENT: Head examination; normocephalic, atraumatic. HEENT examination shows pink conjunctivae, anicteric sclerae. No oropharyngeal lesion. No neck rigidity. CHEST: Kyphosis. LUNGS: Examination shows occasional rhonchi in the upper lung reid bilaterally. CARDIOVASCULAR: Shows S1, S2, regular rhythm. No audible murmur, gallop or rub. ABDOMEN: Soft. Positive bowel sound. Questionable bilateral costovertebral angle tenderness, questionable right and left lower quadrant tenderness, questionable right periumbilical tenderness and mild epigastric tenderness. No rebound tenderness. GENITALIA: Male. RECTAL: Examination is deferred. EXTREMITIES: Shows no pitting edema, no calf numbness, no Homans' sign. MUSCULOSKELETAL: Examination shows a body mass index of 33.4. SKIN: Examination shows multiple tattoos. NEUROLOGIC: The patient is alert, awake, oriented x3. Cranial nerves II-XII grossly intact and limited. Gait examination is not tested. VASCULAR: Palpable pulses. Plantars are downward. DTRs at 2+. LABORATORY DATA: On July 27; WBC count 13.7 and 12.5, hemoglobin/hematocrit 15.8/44.4, 15.2/44.3, platelets 245 and 224. Granulocytes 85% and 83% segs. ESR is 2. The patient had a VBG done. Initial lactate was 2.2. Repeat lactate 1.3. ABG was done on 28% FIO2, pH of 7.41, pCO2 36, pO2 94, bicarb 23, saturation of 99%. The patient's sodium 141, potassium 3.9, chloride 106, CO2 24, anion gap 16, BUN 16, creatinine 0.8, GFR greater than 60, glucose 164. LFTs are normal. TSH was normal. C-reactive protein is greater than 15. Thyroid profile is normal. Procalcitonin level is 0.28, lactic acid is 1.5, hemoglobin A1c 5.5. Urinalysis was negative. Urine drug screen was negative. Influenza serology is negative. The patient had a chest x-ray, CT of the lumbar spine, venous Doppler of the lower extremity, and CT of the chest, abdomen and pelvis done in the emergency room which were reviewed. The patient was treated in the emergency room by the physician ob gyn physician assistant and . The patient was given Tylenol. The patient was given IV fluid bolus, the patient was given a gram of vancomycin, the patient was given 2 g of Rocephin, and the patient was given Zithromax 500 and Toradol 30 IV, and the patient was advised to be admitted. The patient's EKG shows sinus rhythm, small Q-wave. Baseline artifact. Chest x-ray shows questionable left basilar atelectasis versus pneumonia. CT of the lumbar spine was reviewed. CAT scan of the chest, abdomen, pelvis was reviewed. IMPRESSION: 1. High-grade fever, etiology undetermined. 2. Diffuse myalgias and back pain, etiology undetermined. 3. Tachycardia. 4. Leukocytosis. 5. Possible systemic inflammatory response syndrome. 6. Granulocytosis. 7. Transient lactic acidosis. 8. Elevated C-reactive protein of greater than 15. 9. Left lower lobe pneumonia versus infiltrate versus atelectasis. 10. Dextroscoliosis of the spine. 11. Lumbar spine facet osteoarthrosis. 12. Degenerative joint disease of the lumbar spine with moderate central canal stenosis, mid to lower lumbar spine. 13. Mid and lower lumbar spine neuroforaminal narrowing. 14. Fatty infiltration of the liver. 15. Colonic diverticulosis. 16. Possible hepatic steatosis. 17. Mild atelectasis and pulmonary scarring. 18. Distal tracheal polyp versus mucus. 19. Aberrant right subclavian artery. 20. Sigmoid colon diverticulosis. 21. Cecal and ascending colon moderate mural thickening, questionable colitis with stranding of . 22. Mild bladder wall thickening. 23. Subcentimeter lymphadenopathy of the para-aortic region. 24. Questionable ascending colon and cecal nonspecific colitis; questionable inflammatory versus infectious versus ischemic. 25. Questionable cystitis versus under-distention. 26. Obesity. 27. Questionable hypertension. PLAN: Plan at this time, the patient is to be admitted to [facility]. The patient has been ordered serial repeat labs. The patient has been ordered HIV mycoplasma pneumoniae strep pneumoniae. Thyroid antibody titers ordered. Repeat CBC ordered. The patient has been ordered blood and urine cultures. Current consultations; Infectious Disease and Gastroenterology. The patient was given a dose of magnesium citrate. The patient was started on Cozaar 25 daily, Lipitor 40 mg daily, Lovenox 40 mg subcu daily, nicotine patch 21 mg daily, Protonix 40 mg daily, IV fluid 0.9 normal saline at 150 mL an hour. The patient is on Tessalon Perles 200 three times a day, Tylenol p.o. suppository every 6 hours p.r.n., vancomycin 1 g IV every 12 ordered by Infectious Disease, Xopenex nebulizer 0.63 mg. The patient is on Zofran 4 IV every 4. The patient is on Zosyn 3.375 g IV every 6. Venous Doppler of the lower extremity has been ordered. The preliminary report of the venous Doppler is negative for any DVT. The patient has been ordered an MRI of the lumbar spine by the Infectious Disease. The patient has been ordered oxygen 2 liters. The patient has been ordered out of bed, physical therapy, occupational therapy. The patient is to be ordered DVT prophylaxis. At present, the patient's further management will be dependent upon the patient's clinical condition, hemodynamic status, and as per the patient's response to therapeutic intervention as per the patient's diagnostic test results, and as per recommendation by all the physicians involved in the care of the patient. The patient has been ordered GI and DVT prophylaxes. The patient has been updated about his condition, diagnosis, treatment plan, and management plan at length and all questions concerned answered. Dictated and electronically signed, not read. Shiv Larsen MD
[2017-07-28] MEDS: Pantoprazole 40 mg EC Tab PO SCH (05:23)
[2017-07-28 07:08] LABS: BASO # 0.03 K/mm3 (0.0-2.0); BASO % 0.4 % (0.0-3.0); EOS # 0.2 (0.0-0.7); EOS % 2.7 % (1.5-5.0); GRAN # 5.06 (1.4-6.5); GRAN % 67.8 % (50.0-68.0); HEMOGLOBIN 13.9 g/dL (14.0-18.0); LYMPH # 1.3 (1.2-3.4); MEAN CELL VOLUME 88.6 fl (80.0-105.0); MEAN CORPUSCULAR HGB CONC 33.8 g/dl (31.0-37.0); MEAN PLATELET VOLUME 9.1 fl (7.0-11.0); MONO # 0.9 (0.1-0.6); MONO % 12.1 % (1.0-6.0); RBC 4.64 10^6/uL (3.5-6.1); RED CELL DISTRIBUTION WIDTH 13.5 % (11.5-14.5); WHITE BLOOD COUNT 7.5 10^3/ul (4.5-11.0)
[2017-07-28 08:08] LABS: ALB/GLOB RATIO 1.3 (1.1-1.8); ALBUMIN 3.2 g/dL (3.0-4.8); ALT/SGPT 50 U/L (7-56); AST/SGOT 24 U/L (17-59); BLOOD UREA NITROGEN 8 mg/dL (7-21); CALCIUM 8.1 mg/dL (8.4-10.5); GFR AFRICAN-AMERICAN > 60; GFR NON-AFRICAN AMERICAN > 60
--- NOTE | 2017-07-28 08:18 | CON ---
DATE: 07/27/2017 GASTROENTEROLOGY CONSULTATION REQUESTING PHYSICIAN: Shiv Larsen MD. REASON FOR CONSULTATION: I have been asked to see this 47-year-old male with only past medical history of hyperthyroidism who comes to the hospital with 1-day history of worsening generalized body pain and low back pain. In the Emergency Room, the patient was noted to have a fever to 101. He currently denies any abdominal pain, but did have nausea yesterday. He had 1 episode of vomiting this morning. He has had several episodes of loose bowel movements over the last 12 hours. He denies any hematemesis, rectal bleeding, or melena. He denies ingestion of any unusual foods. He denies any recent travel. He denies any recent antibiotic use. He does smoke up to a pack of cigarettes per day. He denies any alcohol use or illicit drug use. PAST MEDICAL HISTORY: Notable for hyperthyroidism. PAST SURGICAL HISTORY: Notable for right leg surgery. SOCIAL HISTORY: He smokes up to a pack a day and has done so for over 30 years. He denies alcohol or illicit drug use. 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 FAMILY HISTORY: Notable for mother with pancreatic cancer. REVIEW OF SYSTEMS: A 14-point review of systems is notable for generalized body aches, low back pain, nausea, vomiting, and diarrhea. PHYSICAL EXAMINATION: GENERAL: Well-developed male, lying in bed, in no acute distress. VITAL SIGNS: Reveal temperature of 98.7, blood pressure 104/70, heart rate of 86. HEENT: Reveals sclerae to be white. Conjunctivae pink. NECK: Supple. CHEST: Lungs are clear. HEART: Reveals regular rate and rhythm. ABDOMEN: Soft, nontender. EXTREMITIES: Show no edema. LABORATORY DATA: Reveal white blood cell count 12.5, hemoglobin 15.2. Chemistries reveal normal electrolytes with a calcium of 8.3, sed rate is 2. Tox screen is negative. Serology is negative for influenza type A and B. IMPRESSION: A 47-year-old male admitted to the hospital with fever, subsequently with some nausea and loose bowel movements and generalized body aches and low back pain. CT scan of the lumbar spine reveals some foraminal narrowing, degenerative changes as well as some central spinal stenosis. CT scan of the abdomen and pelvis reveals some nonspecific mild mural thickening of the ascending colon as well as some mild pericolonic inflammation. He denies any abdominal pain in his right side of the abdomen or any history of colitis or inflammatory bowel disease. I believe that the CT changes are nonspecific and not related to sepsis. His sed rate is 2. One must rule out sepsis versus systemic inflammatory response syndrome and a viral syndrome. RECOMMENDATIONS: 1. Await blood culture results. 2. Continue broad-spectrum antibiotics. 3. Would stop Colace and MiraLax as the patient is currently having diarrhea. 4. The patient can continue on a regular diet. If diarrhea continues, we will check stool for C and S and O and P. 5. No further GI workup planned at this time. William Parr MD
[2017-07-28 08:58] LABS: BILIRUBIN,DIRECT 0.1 mg/dL (0.0-0.4)
[2017-07-28] MEDS: Enoxaparin 40 mg Syringe SC SCH (09:41)
--- NOTE | 2017-07-28 09:44 | MRI ---
PROCEDURE: MR LUMBAR SPINE WITH AND WITHOUT CONTRAST HISTORY: R/O disc herniation R/O spinal mass COMPARISON: None available. TECHNIQUE: Multiecho multiplanar sequences were performed through the lumbar spine with and without the use of intravenous contrast. FINDINGS: There is moderate curvature of the spine convex to the right with a Sánchez angle of 19 degree Vertebral body heights are preserved. Marrow signal unremarkable. Conus medullaris unremarkable at the level of T12 Paraspinal soft tissues are unremarkable. No abnormal enhancement. T12-L1: No disc herniation, spinal canal stenosis or neural foraminal narrowing. L1-2: No disc herniation, spinal canal stenosis or neural foraminal narrowing. L2-3: No disc herniation, spinal canal stenosis or neural foraminal narrowing. L3-4: No disc herniation, spinal canal stenosis or neural foraminal narrowing. L4-5: No disc herniation, spinal canal stenosis or neural foraminal narrowing. Moderate facet arthropathy L5-S1: There is an asymmetric disc bulge with severe right-sided foraminal stenosis. Moderate facet arthropathy OTHER FINDINGS: None. IMPRESSION: Asymmetric disc bulge with severe right-sided foraminal stenosis at L5-S1.
[2017-07-28] MEDS ORDERED: Azithromycin 500MG/NS 250ml 500 MG/250 ML BAG IVPB SCH (10:00)
[2017-07-28] MEDS ORDERED: cefTRIAXone 1 gm 1 GM/100 ML BAG IVPB SCH (10:00)
--- NOTE | 2017-07-28 10:23 | CP.PCM.PN ---
<Yaerlis Anguiano - Last Filed: 07/28/17 12:09> Subjective - Date & Time of Evaluation Date of Evaluation: 07/28/17 Time of Evaluation: 10:21 - Subjective Subjective: Medicine Progress Note -Dr Larsen Service: Patient seen and examined at bedside. Per nursing no acute events overnight. Patient is doing well, back pain is improving. No fevers overnight. States that he had multiple loose bowel movements. Denies headaches, dizziness, cp, palpitations, sob, abdominal pain, urinary symptoms. Objective - Vital Signs/Intake and Output Vital Signs (last 24 hours): Temp Pulse Resp BP Pulse Ox 97.4 F L 74 20 143/96 H 96 07/28/17 06:00 07/28/17 09:40 07/28/17 06:00 07/28/17 09:40 07/28/17 06:00 Intake and Output: 07/28/17 07/28/17 06:59 18:59 Intake Total 2040 Balance 2040 - Medications Medications: Current Medications Acetaminophen (Tylenol 325mg Tab) 650 mg PO Q6 PRN PRN Reason: TEMP>=99.5F Last Admin: 07/27/17 09:08 Dose: 650 mg Acetaminophen (Tylenol 650 Mg Supp) 650 mg RC Q6H PRN PRN Reason: TEMP>=99.5F Atorvastatin Calcium (Lipitor) 40 mg PO DIN [facility] Last Admin: 07/27/17 17:37 Dose: 40 mg Benzonatate (Tessalon Perles) 200 mg PO TID [facility] Last Admin: 07/28/17 09:40 Dose: 200 mg Enoxaparin Sodium (Lovenox) 40 mg SC DAILY [facility] PRN Reason: Protocol Last Admin: 07/28/17 09:41 Dose: Not Given Piperacillin Sod/Tazobactam Sod (Zosyn 3.375 In Ns 100ml) 100 mls @ 200 mls/hr IVPB Q6 [facility] PRN Reason: Protocol Stop: 08/03/17 07:16 Last Admin: 07/28/17 05:23 Dose: 200 mls/hr Vancomycin HCl (Vancomycin 1gm) 1 gm in 250 mls @ 167 mls/hr IVPB Q12H [facility] PRN Reason: Protocol Last Admin: 07/28/17 02:10 Dose: 167 mls/hr Levalbuterol HCl (Xopenex) 0.63 mg IH [id number] [facility] Last Admin: 07/28/17 08:32 Dose: 0.63 mg Losartan Potassium (Cozaar) 25 mg PO DAILY [facility] Last Admin: 07/28/17 09:40 Dose: 25 mg Nicotine (Nicoderm Cq) 1 patch TD DAILY [facility] Last Admin: 07/28/17 09:41 Dose: Not Given Ondansetron HCl (Zofran Inj) 4 mg IVP Q4H PRN PRN Reason: Nausea/Vomiting Last Admin: 07/27/17 07:51 Dose: 4 mg Pantoprazole Sodium (Protonix Ec Tab) 40 mg PO 0600 [facility] Last Admin: 07/28/17 05:23 Dose: 40 mg - Labs Labs: 07/28/17 06:30 07/28/17 06:30 - Constitutional Appears: Well, No Acute Distress - Head Exam Head Exam: ATRAUMATIC, NORMAL INSPECTION, NORMOCEPHALIC - Eye Exam Eye Exam: EOMI, Normal appearance - ENT Exam ENT Exam: Mucous Membranes Moist - Neck Exam Neck Exam: Full ROM - Respiratory Exam Respiratory Exam: Decreased Breath Sounds, NORMAL BREATHING PATTERN. absent: Rales, Rhonchi, Wheezes - Cardiovascular Exam Cardiovascular Exam: REGULAR RHYTHM, +S1, +S2 - GI/Abdominal Exam GI & Abdominal Exam: Soft, Normal Bowel Sounds. absent: Guarding, Rigid, Tenderness - Rectal Exam Rectal Exam: Deferred - Extremities Exam Extremities Exam: Full ROM, Normal Inspection - Back Exam Back Exam: NORMAL INSPECTION - Neurological Exam Neurological Exam: Alert, Awake, CN II-XII Intact, Normal Gait, Oriented x3 - Psychiatric Exam Psychiatric exam: Normal Affect, Normal Mood - Skin Skin Exam: Dry, Normal Color, Warm Assessment and Plan - Assessment and Plan (Free Text) Assessment: A/P: This is a 47 year old male with PMHx hyperthyroidism who presented with complaint of generalized body pain worst in the lumbar spine. Patient found to be septic in the ED with suspected source of pneumonia. Plan: 1. SIRS (systemic inflammatory response syndrome) -Stable, afebrile -Discontinue Telemetry -Given Vancomycin, Azithromycin, Rocephin in the ED -CXR on admission: left basilar atelectasis vs early pneumonia -Antibiotics: Vancomycin 1gm Q12H, Zosyn 3.375mg Q6H -Blood cultures negative x 24 hours, urine cultures negative -Continue Xopenex Q6H NAYAN, chest PT -Tessalon pearls 200mg TID -Procalcitonin is negative, legionella negative -F/U strep pneumonia, mycoplasma studies -Encourage ISS use -CT chest/abd/pelvis without contrast showed colitis, nonspecific, mild cystitis vs underdistention (see full report) -ID on consult, help appreciated 2. Back Pain -CT lumbar showed lumbar stenosis and foraminal narrowing -Lumbar MRI showed asymmetric disc bulge with severe right sided foraminal stenosis L5-S1 -Back pain improved -PT/OT 3. Questionable Colitis, History of Constipation -Patient started on Miralax and was given Mag citrate x 1 dose -Now having multiple loose bowel movements -Will discontinue stool softeners -F/U C diff, stool culture, ova parasites -Bacid 1 tab TID x 6 doses -No further GI workup needed -GI on consult, help appreciated 4. Tobacco Use Disorder -Nicotine patch -Counselled on smoking cessation 5. History of Hyperthyroidism -Thyroid studies within normal limits thus far -Thyroid ab, thyroglobulin, TSI pending -Asymptomatic -Will continue to monitor 6. Questionable cystitis vs underdistention -UA negative, urine culture negative -Asymptomatic 7. Elevated blood pressures -Continue Cozaar 25mg PO daily GI/DVT ppx -Protonix 40mg PO daily -Lovenox 40mg SC daily Discussed with Dr. Chava Anguiano DO PGY-1 <Shiv Larsen U - Last Filed: 07/28/17 15:40> Objective - Vital Signs/Intake and Output Vital Signs (last 24 hours): Temp Pulse Resp BP Pulse Ox 98.3 F 104 H 18 133/83 96 07/28/17 12:00 07/28/17 12:00 07/28/17 12:00 07/28/17 12:00 07/28/17 09:00 Intake and Output: 07/28/17 07/28/17 06:59 18:59 Intake Total 2039 Balance 2039 - Medications Medications: Current Medications Acetaminophen (Tylenol 325mg Tab) 650 mg PO Q6 PRN PRN Reason: TEMP>=99.5F Last Admin: 07/27/17 09:08 Dose: 650 mg Acetaminophen (Tylenol 650 Mg Supp) 650 mg RC Q6H PRN PRN Reason: TEMP>=99.5F Atorvastatin Calcium (Lipitor) 40 mg PO DIN [facility] Last Admin: 07/27/17 17:37 Dose: 40 mg Benzonatate (Tessalon Perles) 200 mg PO TID [facility] Last Admin: 07/28/17 13:37 Dose: 200 mg Enoxaparin Sodium (Lovenox) 40 mg SC DAILY [facility] PRN Reason: Protocol Last Admin: 07/28/17 09:41 Dose: Not Given Piperacillin Sod/Tazobactam Sod (Zosyn 3.375 In Ns 100ml) 100 mls @ 200 mls/hr IVPB Q6 [facility] PRN Reason: Protocol Stop: 08/03/17 07:16 Last Admin: 07/28/17 12:32 Dose: 200 mls/hr Vancomycin HCl (Vancomycin 1gm) 1 gm in 250 mls @ 167 mls/hr IVPB Q12H [facility] PRN Reason: Protocol Last Admin: 07/28/17 13:37 Dose: 167 mls/hr Lactobacillus Acidophilus (Bacid Acidophilus) 1 cap PO TID [facility] Stop: 07/30/17 10:01 Last Admin: 07/28/17 13:37 Dose: 1 cap Levalbuterol HCl (Xopenex) 0.63 mg IH [id number] [facility] Last Admin: 07/28/17 14:13 Dose: 0.63 mg Losartan Potassium (Cozaar) 25 mg PO DAILY [facility] Last Admin: 07/28/17 09:40 Dose: 25 mg Nicotine (Nicoderm Cq) 1 patch TD DAILY [facility] Last Admin: 07/28/17 09:41 Dose: Not Given Ondansetron HCl (Zofran Inj) 4 mg IVP Q4H PRN PRN Reason: Nausea/Vomiting Last Admin: 07/27/17 07:51 Dose: 4 mg Pantoprazole Sodium (Protonix Ec Tab) 40 mg PO 0600 [facility] Last Admin: 07/28/17 05:23 Dose: 40 mg - Labs Labs: 07/28/17 06:30 07/28/17 06:30 Attending/Attestation - Attestation I have personally seen and examined this patient.: Yes I have fully participated in the care of the patient.: Yes I have reviewed all pertinent clinical information, including history, physical exam and plan: Yes Notes (Text): Please see/read my dictated notes.
--- NOTE | 2017-07-28 12:15 | CP.PCM.PN ---
Subjective - Date & Time of Evaluation Date of Evaluation: 07/28/17 Time of Evaluation: 09:40 - Subjective Subjective: Back pain is a little better and the able to walk more properly, no fevers, not in distress. Objective - Vital Signs/Intake and Output Vital Signs (last 24 hours): Temp Pulse Resp BP Pulse Ox 97.4 F L 77 20 113/81 96 07/28/17 06:00 07/28/17 06:00 07/28/17 06:00 07/28/17 06:00 07/28/17 06:00 Intake and Output: 07/27/17 07/28/17 18:59 06:59 Intake Total 1700 240 Output Total 50 Balance 1650 240 - Medications Medications: Current Medications Acetaminophen (Tylenol 325mg Tab) 650 mg PO Q6 PRN PRN Reason: TEMP>=99.5F Last Admin: 07/27/17 09:08 Dose: 650 mg Acetaminophen (Tylenol 650 Mg Supp) 650 mg RC Q6H PRN PRN Reason: TEMP>=99.5F Atorvastatin Calcium (Lipitor) 40 mg PO DIN [facility] Last Admin: 07/27/17 17:37 Dose: 40 mg Benzonatate (Tessalon Perles) 200 mg PO TID [facility] Last Admin: 07/27/17 17:37 Dose: 200 mg Enoxaparin Sodium (Lovenox) 40 mg SC DAILY [facility] PRN Reason: Protocol Last Admin: 07/27/17 09:09 Dose: Not Given Piperacillin Sod/Tazobactam Sod (Zosyn 3.375 In Ns 100ml) 100 mls @ 200 mls/hr IVPB Q6 [facility] PRN Reason: Protocol Stop: 08/03/17 07:16 Last Admin: 07/28/17 05:23 Dose: 200 mls/hr Sodium Chloride (Sodium Chloride 0.9%) 1,000 mls @ 150 mls/hr IV .Q6H40M [facility] Last Admin: 07/27/17 20:00 Dose: Not Given Vancomycin HCl (Vancomycin 1gm) 1 gm in 250 mls @ 167 mls/hr IVPB Q12H [facility] PRN Reason: Protocol Last Admin: 07/28/17 02:10 Dose: 167 mls/hr Levalbuterol HCl (Xopenex) 0.63 mg IH [id number] [facility] Last Admin: 07/28/17 02:10 Dose: 0.63 mg Losartan Potassium (Cozaar) 25 mg PO DAILY [facility] Last Admin: 07/27/17 09:08 Dose: 25 mg Nicotine (Nicoderm Cq) 1 patch TD DAILY [facility] Last Admin: 07/27/17 09:09 Dose: Not Given Ondansetron HCl (Zofran Inj) 4 mg IVP Q4H PRN PRN Reason: Nausea/Vomiting Last Admin: 07/27/17 07:51 Dose: 4 mg Pantoprazole Sodium (Protonix Ec Tab) 40 mg PO 0600 [facility] Last Admin: 07/28/17 05:23 Dose: 40 mg - Labs Labs: 07/27/17 06:30 07/27/17 06:30 - Constitutional Appears: Non-toxic, Chronically Ill - Head Exam Head Exam: NORMAL INSPECTION - ENT Exam ENT Exam: Mucous Membranes Moist - Neck Exam Neck Exam: absent: Meningismus - Respiratory Exam Respiratory Exam: absent: Rales, Rhonchi - Cardiovascular Exam Cardiovascular Exam: +S1, +S2 - GI/Abdominal Exam GI & Abdominal Exam: Soft. absent: Tenderness - Back Exam Back Exam: absent: CVA tenderness (L), CVA tenderness (R), paraspinal tenderness , vertebral tenderness Assessment and Plan - Assessment and Plan (Free Text) Plan: Assessment systemic inflammatory response syndrome in this patient acute worsening of lower back pain, consider acute stress reaction, with disc herniation, right sided with severe foraminal stenosis hyperthyroidism obesity with BMI 33 history of right leg surgery significant smoking history Plan on Vancomycin and Zosyn day 2; cultures so far are negative - if they continue to be negative by tomorrow will d/c antibiotics reviewed MRI lumbar spine - follow up PMD plans HIV test is non-reactive will continue to monitor clinically
[2017-07-28] MEDS: Lactobacillus Acidophilus 500 MU Cap PO SCH ×2 (13:37→17:55)
[2017-07-28 17:57] LABS: THYROGLOBULIN 0.2 ng/mL (2.8-40.9)
--- NOTE | 2017-07-28 23:43 | PN ---
DATE: 07/28/2017 SUBJECTIVE: The patient is seen in room 274, bed 2. The patient is alert, awake, responsive. Telemetry shows sinus rhythm. No arrhythmias noted. PHYSICAL EXAMINATION: VITAL SIGNS: T-max 98.3-98.2. Heart rate 74, 95; blood pressure in the last 12-24 hours 104/72, 113/75/130/81, 143/96, 133/83; respirations 18; O2 sat 96-98% on room air. HEENT: Head examination normocephalic, atraumatic. HEENT examination shows pink conjunctivae. Anicteric sclerae, dry oral mucosa. NECK: No neck rigidity. CHEST: Symmetrical. LUNGS: Shows occasional rhonchi, left side more than the right. CARDIOVASCULAR: S1, S2. Regular rhythm. ABDOMEN: Soft. Positive bowel sound. GENITALIA: Male. RECTAL: Deferred. EXTREMITY: Shows no pitting edema, no calf tenderness, no Homans' sign. NEUROLOGICAL: The patient is alert, awake, oriented x3. Cranial nerves II through XII intact. Gait examination is independent. VASCULAR: Palpable pulses. MUSCULOSKELETAL: Shows a body mass index of 34. CHIEF COMPLAINT: The patient is complaining of loose bowel movement. The patient's Colace and MiraLax will be stopped. DIAGNOSTICS: On 07/28/2017, WBC down to 7.5 from 13.7, hemoglobin and hematocrit 13.9 and 41.1, platelet 217. Sodium 142, potassium 4.2, chloride 108, CO2 of 26, anion gap 12, BUN 8, creatinine 1, GFR greater than 60, glucose 97. Hemoglobin A1c 5.5, which is prediabetic. Calcium 8.1, uric acid is 5.3, phosphorus 3, magnesium 2.2. LFTs are normal. CPK is negative. Urine drug screen negative. Thyroid peroxidase antibody greater than 900, thyroglobulin antibody 12 and 11. Hepatitis A, B, C serologies negative. HIV-1 and 2 fourth generation negative. Influenza, Legionella negative. Blood, urine cultures negative. The patient's MRI of the lumbar spine noted. Recommendation by Infectious Disease noted. Reinforced to the patient. The patient updated about his diagnostic test results. The patient was updated about the details of his medical condition. IMPRESSION AND PLAN: 1. Systemic inflammatory response syndrome. 2. Back pain. 3. History of hyperthyroidism. 4. Transient hypertension. 5. Tachycardia. 6. High-grade fever of 101.4. 7. Tachycardia. 8. Leukocytosis with granulocytosis (resolved). 9. Transient lactic acidosis. 10. History of hyperthyroidism. 11. Elevated thyroid peroxidase antibody and thyroglobulin antibody. 12. L5-S1 asymmetric disk bulge with severe right-sided foramen stenosis. 13. Left lower lobe atelectasis versus infiltrate versus pneumonia. 14. Distal tracheal polyp versus mucus. 15. Mild urinary bladder wall thickening. 16. Degenerative joint disease and scoliosis of the spine. 17. Subcentimeter para-aortic lymphadenopathy. 18. Sigmoid colon diverticulosis with ascending and cecal moderate mural thickening, questionable nonspecific colitis versus inflammatory versus infectious was ischemic. 19. Questionable cystitis with bladder wall thickening. 20. Degenerative joint disease of the lumbar spine with central canal stenosis of the mid to lower lumbar spine and neuroforaminal narrowing of the mid to lower lumbar spine. 21. Mild fatty liver. 22. Colonic diverticulosis. 23. Obesity with elevated body mass index of 34. 24. High-grade fever. 25. Questionable diarrhea secondary to MiraLax and Colace. 1. High-grade fever, etiology undetermined. 2. Diffuse myalgias and back pain, etiology undetermined. 3. Tachycardia. 4. Leukocytosis. 5. Possible systemic inflammatory response syndrome. 6. Granulocytosis. 7. Transient lactic acidosis. 8. Elevated C-reactive protein of greater than 15. 9. Left lower lobe pneumonia versus infiltrate versus atelectasis. 10. Dextroscoliosis of the spine. 11. Lumbar spine facet osteoarthrosis. 12. Degenerative joint disease of the lumbar spine with moderate central canal stenosis, mid to lower lumbar spine. 13. Mid and lower lumbar spine neuroforaminal narrowing. 14. Fatty infiltration of the liver. 15. Colonic diverticulosis. 16. Possible hepatic steatosis. 17. Mild atelectasis and pulmonary scarring. 18. Distal tracheal polyp versus mucus. 19. Aberrant right subclavian artery. 20. Sigmoid colon diverticulosis. 21. Cecal and ascending colon moderate mural thickening, questionable colitis with stranding of . 22. Mild bladder wall thickening. 23. Subcentimeter lymphadenopathy of the para-aortic region. 24. Questionable ascending colon and cecal nonspecific colitis; questionable inflammatory versus infectious versus ischemic. 25. Questionable cystitis versus under-distention. 26. Obesity. 27. Questionable hypertension. Plan at this time, the patient has been ordered repeat labs for the morning. Repeat CBC ordered. Clostridium difficile toxin ordered. Antigen toxin ordered. Current consultation: Gastroenterology, Infectious Disease. Current medications: Bacid 1 capsule three times a day for total of 6 doses, Cozaar 25 mg daily, Lipitor 40 mg daily, Lovenox 40 mg subcu daily, nicotine 21 mg daily, Protonix 40 mg daily, Tessalon Perles 200 three times a day. The patient is on Tylenol p.r.n. for fever, vancomycin 1 g IV every 12, Xopenex nebulizer 0.63 mg every 6 hours, Zosyn 3.375 g IV every six. Thyroid ultrasound ordered for elevated thyroid antibody. The patient has been ordered chest PT every 6 hours, oxygen 2 L, out of bed to chair. Infectious Disease recommendations and GI recommendations were noted and reinforced to the patient. According to the Infectious Disease recommendations today, if blood cultures and urine cultures continued to be negative, we will consider discontinuing antibiotics and possible discharge home. GI recommends no further GI workup. Dictated and electronically signed, not read. Shiv Larsen MD JENNIFER
[2017-07-29] MEDS: Piperacillin/Tazobact 3.375 gm 100 ML IVPB SCH ×2 (01:00→08:25)
[2017-07-29] MEDS: Levalbuterol 0.63 MG/3 ML Inhal Soln UD IH SCH ×3 (03:05→13:03)
[2017-07-29] MEDS ORDERED: Vancomycin 1gm in NS 250ml 1 GM/250 ML BAG IVPB SCH (06:00)
[2017-07-29 06:48] LABS: BASO # 0.03 K/mm3 (0.0-2.0); BASO % 0.6 % (0.0-3.0); EOS # 0.3 (0.0-0.7); EOS % 6.1 % (1.5-5.0); GRAN # 2.48 (1.4-6.5); GRAN % 47.6 % (50.0-68.0); HEMOGLOBIN 14.2 g/dL (14.0-18.0); LYMPH # 1.7 (1.2-3.4); LYMPH % 33.2 % (22.0-35.0); MEAN CELL VOLUME 87.5 fl (80.0-105.0); MEAN CORPUSCULAR HGB CONC 34.3 g/dl (31.0-37.0); MEAN PLATELET VOLUME 9.1 fl (7.0-11.0); MONO # 0.7 (0.1-0.6); MONO % 12.5 % (1.0-6.0); RBC 4.73 10^6/uL (3.5-6.1); WHITE BLOOD COUNT 5.2 10^3/ul (4.5-11.0)
[2017-07-29 07:30] LABS: ALB/GLOB RATIO 1.3 (1.1-1.8); ALBUMIN 3.6 g/dL (3.0-4.8); ALT/SGPT 51 U/L (7-56); AST/SGOT 31 U/L (17-59); BLOOD UREA NITROGEN 6 mg/dL (7-21); CALCIUM 8.7 mg/dL (8.4-10.5); GFR AFRICAN-AMERICAN > 60; GFR NON-AFRICAN AMERICAN > 60
[2017-07-29] MEDS: Pantoprazole 40 mg EC Tab PO SCH (07:30)
[2017-07-29 07:39] VITALS: BP 115/80; PULSE 68; RESP 20; TEMP 98.1; O2SAT 95
--- NOTE | 2017-07-29 08:10 | PN ---
DATE: 07/28/2017 SUBJECTIVE: The patient is lying in bed. He feels better. He has not had any further fevers or generalized body aches. He denies any abdominal pain. He did have several episodes of diarrhea this morning. He denies any rectal bleeding. PHYSICAL EXAMINATION: VITAL SIGNS: Reveal temperature of 97.4, blood pressure 133/83, heart rate of 104. HEENT: Reveals sclerae to be white. Oral mucosa is moist. Conjunctivae pink. NECK: Supple. CHEST: Lungs clear. HEART: Reveals regular rate and rhythm. ABDOMEN: Soft, nontender. EXTREMITIES: Show no edema. LABORATORY DATA: Reveal white blood cell count 7.5, hemoglobin 13.9. Chemistries reveal normal electrolytes, chloride of 108. AST, ALT, alkaline phosphatase were all normal. IMPRESSION: 1. Systemic inflammatory response syndrome, possibly related to a viral syndrome. His blood cultures are negative. 2. Diarrhea, most likely secondary to recent laxative use and possibly now secondary to antibiotics, which he is getting for his fever and possible sepsis. 3. Herniated lumbosacral disk with right severe foraminal narrowing. RECOMMENDATIONS: 1. Agree with checking for stool for C and S, O and P, and C. diff. 2. Agree with probiotics. The patient is stable from a GI standpoint. William Parr MD
[2017-07-29] MEDS: Lactobacillus Acidophilus 500 MU Cap PO SCH (09:24)
--- NOTE | 2017-07-29 12:28 | PN ---
DATE: 07/29/2017 SUBJECTIVE: The patient is lying in bed. He feels much better. He denies any further fevers or chills. He denies any further body aches. He denies any further diarrhea. He denies abdominal pain. PHYSICAL EXAMINATION VITAL SIGNS: Reveal temperature of 98.1, blood pressure of 115/80, heart rate of 68. HEENT: Reveals sclerae to be white. Conjunctivae pink. NECK: Supple. CHEST: Reveals lungs to be clear. HEART: Reveals regular rate and rhythm. ABDOMEN: Soft, nontender. No mass. EXTREMITIES: Show no edema. LABORATORY DATA: Revealed white blood cell count 5.2, hemoglobin 14.2. Chemistries reveal normal electrolytes. IMPRESSION: 1. Systemic inflammatory response syndrome. 2. Diarrhea, most likely secondary to laxatives as well as possible antibiotic associated diarrhea. A CT scan of the abdomen and pelvis showed nonspecific mural thickening of the ascending colon. The patient was not symptomatic from this. I doubt that this is an acute colitis. 3. Herniated lumbosacral disc. RECOMMENDATIONS: The patient is stable from GI. He can be followed up as an outpatient. We would continue probiotics for now. William Parr MD
[2017-07-29] MEDS: Enoxaparin 40 mg Syringe SC SCH (13:03)
--- NOTE | 2017-07-29 14:06 | US ---
HISTORY: HYPERTHYROIDISM/THYROIDITIS TECHNIQUE: Sonographic evaluation of the thyroid gland. COMPARISON: None FINDINGS: RIGHT LOBE: Measures 6.0 x 3.0 x 2.6 cm. Diffuse heterogeneous echotexture with diffuse increased vascular flow Nodules: None LEFT LOBE: Measures 5.5 x 2.3 x 2.1 cm. Diffuse heterogeneous echotexture with diffuse increased vascular flow Nodules: None ISTHMUS: Measures 0.45 cm. Mild heterogeneous echotexture and f mild increased low. Nodules: None OTHER FINDINGS: None . IMPRESSION: Prominent thyroid -heterogeneous in echotexture with generalized increased vascular flow. Findings are consistent with the clinical history provided of hyperthyroidism/thyroiditis. No specifically delineated thyroid nodules seen
[2017-07-29 18:24] LABS: TSI 459 % baseline (<140)
--- NOTE | 2017-07-29 18:42 | CP.PCM.PN ---
Subjective - Date & Time of Evaluation Date of Evaluation: 07/29/17 Time of Evaluation: 10:55 - Subjective Subjective: No fevers, not in distress, back pain is much better, no abdominal pain, no diarrhea. Objective - Vital Signs/Intake and Output Vital Signs (last 24 hours): Temp Pulse Resp BP Pulse Ox 98.1 F 68 20 115/80 95 07/29/17 06:00 07/29/17 09:24 07/29/17 06:00 07/29/17 09:24 07/29/17 06:00 Intake and Output: 07/29/17 07/29/17 06:59 18:59 Intake Total 1020 Balance 1020 - Medications Medications: Current Medications Acetaminophen (Tylenol 325mg Tab) 650 mg PO Q6 PRN PRN Reason: TEMP>=99.5F Last Admin: 07/27/17 09:08 Dose: 650 mg Acetaminophen (Tylenol 650 Mg Supp) 650 mg RC Q6H PRN PRN Reason: TEMP>=99.5F Atorvastatin Calcium (Lipitor) 40 mg PO DIN [facility] Last Admin: 07/28/17 17:55 Dose: 40 mg Benzonatate (Tessalon Perles) 200 mg PO TID [facility] Last Admin: 07/29/17 09:24 Dose: 200 mg Enoxaparin Sodium (Lovenox) 40 mg SC DAILY [facility] PRN Reason: Protocol Last Admin: 07/28/17 09:41 Dose: Not Given Piperacillin Sod/Tazobactam Sod (Zosyn 3.375 In Ns 100ml) 100 mls @ 200 mls/hr IVPB Q6 [facility] PRN Reason: Protocol Stop: 08/03/17 07:16 Last Admin: 07/29/17 08:25 Dose: 200 mls/hr Lactobacillus Acidophilus (Bacid Acidophilus) 1 cap PO TID [facility] Stop: 07/30/17 10:01 Last Admin: 07/29/17 09:24 Dose: 1 cap Levalbuterol HCl (Xopenex) 0.63 mg IH [id number] [facility] Last Admin: 07/29/17 07:19 Dose: 0.63 mg Losartan Potassium (Cozaar) 25 mg PO DAILY [facility] Last Admin: 07/29/17 09:24 Dose: 25 mg Nicotine (Nicoderm Cq) 1 patch TD DAILY [facility] Last Admin: 07/28/17 09:41 Dose: Not Given Ondansetron HCl (Zofran Inj) 4 mg IVP Q4H PRN PRN Reason: Nausea/Vomiting Last Admin: 07/27/17 07:51 Dose: 4 mg Pantoprazole Sodium (Protonix Ec Tab) 40 mg PO 0600 [facility] Last Admin: 07/29/17 07:30 Dose: 40 mg - Labs Labs: 07/29/17 06:20 07/29/17 06:20 - Constitutional Appears: Chronically Ill - Head Exam Head Exam: NORMAL INSPECTION - Neck Exam Neck Exam: absent: Meningismus - Respiratory Exam Respiratory Exam: Decreased Breath Sounds. absent: Rales - Cardiovascular Exam Cardiovascular Exam: +S1, +S2 - GI/Abdominal Exam GI & Abdominal Exam: Soft. absent: Tenderness Assessment and Plan - Assessment and Plan (Free Text) Plan: Assessment systemic inflammatory response syndrome in this patient acute worsening of lower back pain, consider acute stress reaction, with disc herniation, right sided with severe foraminal stenosis R/O colitis hyperthyroidism obesity with BMI 33 history of right leg surgery significant smoking history Plan on Zosyn day 3; cultures so far are negative - follow up stool studies - can switch to PO Flagyl for another 7 days HIV test is non-reactive
--- NOTE | 2017-07-30 11:57 | PQF GENQUE ---
07/30/17 Dr. Larsen, Please clarify principal diagnosis--reason for admission after study. Both sepsis and SIRS with viral infection are documented--please indicate which would be the principal diagnosis in progress notes. Thank you. Clarification of your documentation is requested to better reflect the severity of illness and intensity of treatment of your patient. Indicators present [] Specify: [] [] Specify: [] [] Specify: [] [] Specify: [] Location in the medical record that reflects the above clinical findings: [] Treatment Provided: [] PHYSICIAN'S RESPONSE Based on your medical judgment of the clinical indicators outlined above please clarify the following: [] Practitioner response [] If unable to determine, please check the box, sign and date. Present On Admission (POA) Indicator: [] Present at the time of admission [] Not present at the time of admission [] Clinically Undetermined In responding to this query, please exercise your independent professional judgment. The fact that a question is asked does not imply that any particular answer is desired or expected. Thank you for your clarification on this documentation. If you have any questions please call:[ ] * Thank you, [ ] retail client solutions consultant JENNIFER
--- NOTE | 2017-07-30 18:44 | DS ---
FINAL PROGRESS NOTE AND DISCHARGE SUMMARY HISTORY OF PRESENT ILLNESS: The patient is seen in room 560, bed 2. The patient is lying in the bed. The patient is comfortable. Overnight nurse's notes were reviewed. The patient denies any chest pain or shortness of breath. Denies nausea, vomiting, or diarrhea. Denies constipation. Denies fever. Denies chills. Denies hemoptysis, hematemesis, or melena. PHYSICAL EXAMINATION: VITAL SIGNS: T-max 98.3, heart rate 68, blood pressure 115/80, respirations 20, O2 sat 95% to 98%. HEENT: Head: Normocephalic, atraumatic. [place] conjunctivae. Anicteric sclerae. No oropharyngeal lesion. NECK: No neck rigidity. CHEST: Symmetrical. LUNGS: Show no rales, crackles, or wheezing. CARDIOVASCULAR: S1 and S2. Regular rhythm. ABDOMEN: Soft. Positive bowel sound. GENITALIA: Male. RECTAL: Deferred. EXTREMITIES: Show no pitting edema, no calf tenderness, no Homans sign. NEUROLOGICAL: The patient is alert, awake, and oriented x3. Cranial nerves II through XII intact. Gait examination is independent. MUSCULOSKELETAL: Body mass index of 33.4. PSYCHIATRIC: Negative. DIAGNOSTICS: 07/29/2017: WBC 5.2, hemoglobin and hematocrit 14.2 and 41.4, and platelets 252. Sodium 143, potassium 4.2, chloride 105, CO2 of 29, anion gap 12. BUN 6, creatinine 1.1. GFR greater than 60. Glucose 91. Calcium 8.7, phosphorus 3.7, magnesium 2.2. LFTs are normal. Thyroid peroxidase antibody greater than 900. Microbiology: C. diff antigen and toxin negative. Stool ova and parasites negative. Thyroid ultrasound shows diffuse heterogenous echotexture with generalized increased vascular flow, finding consistent with history provided by hyperthyroidism and thyroiditis. The patient was seen by the soap slabber, Infectious Disease. The patient was cleared for discharge. Infectious Disease recommended 7 more days of Flagyl which was given to the patient upon discharge. The patient was seen by Gastroenterology. Recommendations to clear for discharge. FINAL IMPRESSION, PLAN, AND DISCHARGE DIAGNOSES: 1. Systemic inflammatory response syndrome. 2. High-grade fever. 3. Questionable cecal and ascending colon colitis. Questionable inflammatory versus ischemic versus infectious with nonspecific mural thickening of the cecal and ascending colon. 4. Laxative and stool softener induced diarrhea.(resolved). 5. Hyperthyroidism with thyroiditis with heterogenous thyroid gland with generalized increased vascular flow of the thyroid gland. 6. Leukocytosis with granulocytosis. 7. Transient lactic acidosis. 8. Elevated C-reactive protein of greater than 15. 9. Elevated thyroid stimulating immunoglobulin of 450. 10. Elevated thyroid peroxidase antibody and elevated thyroglobulin antibody. 11. L5-S1 asymmetric disk bulge with severe right-sided foramen stenosis. 12. Questionable cystitis with mild bladder wall thickening. 13. Sigmoid colonic diverticulosis. 14. Cecal and ascending colon moderate mural thickening with mild adjacent fat stranding. Questionable colitis, nonspecific. Questionable inflammatory colitis versus infectious colitis versus ischemic colitis. 15. Obesity with elevated body mass index of 34. 1. Systemic inflammatory response syndrome. 2. Back pain. 3. History of hyperthyroidism. 4. Transient hypertension. 5. Tachycardia. 6. High-grade fever of 101.4. 7. Tachycardia. 8. Leukocytosis with granulocytosis (resolved). 9. Transient lactic acidosis. 10. History of hyperthyroidism. 11. Elevated thyroid peroxidase antibody and thyroglobulin antibody. 12. L5-S1 asymmetric disk bulge with severe right-sided foramen stenosis. 13. Left lower lobe atelectasis versus infiltrate versus pneumonia. 14. Distal tracheal polyp versus mucus. 15. Mild urinary bladder wall thickening. 16. Degenerative joint disease and scoliosis of the spine. 17. Subcentimeter para-aortic lymphadenopathy. 18. Sigmoid colon diverticulosis with ascending and cecal moderate mural thickening, questionable nonspecific colitis versus inflammatory versus infectious was ischemic. 19. Questionable cystitis with bladder wall thickening. 20. Degenerative joint disease of the lumbar spine with central canal stenosis of the mid to lower lumbar spine and neuroforaminal narrowing of the mid to lower lumbar spine. 21. Mild fatty liver. 22. Colonic diverticulosis. 23. Obesity with elevated body mass index of 34. 24. High-grade fever. 25. Questionable diarrhea secondary to MiraLax and Colace. 1. High-grade fever, etiology undetermined. 2. Diffuse myalgias and back pain, etiology undetermined. 3. Tachycardia. 4. Leukocytosis. 5. Possible systemic inflammatory response syndrome. 6. Granulocytosis. 7. Transient lactic acidosis. 8. Elevated C-reactive protein of greater than 15. 9. Left lower lobe pneumonia versus infiltrate versus atelectasis. 10. Dextroscoliosis of the spine. 11. Lumbar spine facet osteoarthrosis. 12. Degenerative joint disease of the lumbar spine with moderate central canal stenosis, mid to lower lumbar spine. 13. Mid and lower lumbar spine neuroforaminal narrowing. 14. Fatty infiltration of the liver. 15. Colonic diverticulosis. 16. Possible hepatic steatosis. 17. Mild atelectasis and pulmonary scarring. 18. Distal tracheal polyp versus mucus. 19. Aberrant right subclavian artery. 20. Sigmoid colon diverticulosis. 21. Cecal and ascending colon moderate mural thickening, questionable colitis with stranding of . 22. Mild bladder wall thickening. 23. Subcentimeter lymphadenopathy of the para-aortic region. 24. Questionable ascending colon and cecal nonspecific colitis; questionable inflammatory versus infectious versus ischemic. 25. Questionable cystitis versus under-distention. 26. Obesity. 27. Questionable hypertension. Plan at this time, the patient was cleared for discharge by Infectious Disease. Infectious Disease recommendations were to p.o. Flagyl for another 7 days. DISCHARGE MEDICATIONS: Flagyl 500 mg twice a day for 7 days, nicotine patch 21 mg daily, Cozaar 25 mg daily, Lipitor 40 mg daily. The patient is to be discharged home. The patient was advised discharge followup with Dr. Larsen within 1 week. Time spent in the entire discharge process more than 45 minutes. Dictated and electronically signed, not read. Shiv Larsen MD MTDD
== END 2017-07-29 14:39 | disposition home or self-care (01) | DRG 866 ==
LOC: ED 23:51 → ERH 07-27 03:57 → 2RSO 07-27 06:20 → 5RNO 07-28 14:58
PROVIDERS: ADMIT Internal Medicine; ATTEND Internal Medicine
DX: B34.9 Viral infection, unspecified (principal); E87.2 Acidosis; J98.11 Atelectasis; R65.10 Systemic inflammatory response syndrome (SIRS) of non-infectious origin without acute organ dysfunction; E05.90 Thyrotoxicosis, unspecified without thyrotoxic crisis or storm; E66.9 Obesity, unspecified; F17.210 Nicotine dependence, cigarettes, uncomplicated; K57.30 Diverticulosis of large intestine without perforation or abscess without bleeding; K76.0 Fatty (change of) liver, not elsewhere classified; M19.90 Unspecified osteoarthritis, unspecified site; M41.9 Scoliosis, unspecified; M48.061 Spinal stenosis, lumbar region without neurogenic claudication; M47.816 Spondylosis without myelopathy or radiculopathy, lumbar region; R73.03 Prediabetes; Z68.34 Body mass index [BMI] 34.0-34.9, adult; Z79.899 Other long term (current) drug therapy; Z80.0 Family history of malignant neoplasm of digestive organs; Z84.1 Family history of disorders of kidney and ureter; R59.0 Localized enlarged lymph nodes; M51.27 Other intervertebral disc displacement, lumbosacral region